=== PATIENT | female | born 1960 | race Hispanic/Latino ===

== ENCOUNTER → 2025-03-10 | Outpatient (CLI) | payer OTHER, MEDICARE ==
[~2025-03-10] MED LIST: CHLO25TA3 PO; ERGO500093 PO; LEVO750T68 PO; LISI20TA24 PO; METH-811 PO; METR-172 PO; ROSU20TA98 PO; TRAM50TA4 PO
--- NOTE | 2025-03-15 15:05 | HMCIMG ---
DIGITAL BILATERAL SCREENING MAMMOGRAM Technique: The digital mammographic examination of both breasts in craniocaudal and mediolateral oblique views along with CAD was obtained. History: This is a 65 years year-old female 3, para3 Ab0. Patient has no family history of breast cancer. Patient has no complaint Reference:Prior mammogram from 12/08/2012 is available.. Breast composition: Breast composition B: There are scattered areas of fibroglandular density. Finding: The digital mammographic examination of both breasts in craniocaudal and mediolateral oblique view along with CAD demonstrates both breasts to BE mildly to moderately heterogeneously dense. There are scattered benign solitary macrocalcification in both breasts.. There is no evidence of any dendritic mass, cluster microcalcification or architectural distortion. The retromammary fat appears to be normal. IMPRESSION: Unchanged from prior mammography. NO RADIOGRAPHIC EVIDENCE OF MALIGNANT CHANGES. WE WOULD RECOMMEND ANNUAL FOLLOW UP WITH TOMOSYNTHESIS UNLESS OTHERWISE CLINICALLY INDICATED. FINAL ASSESSMENT: ACR: BI-RAD- 2. Benign: Also a negative assessment; finding(s) benign abnormalities. Management: Routine mammography screening. Likelihood of Cancer: Essentially 0% likelihood of malignancy. NOTE: IF A WORK-UP OF THIS PATIENT LEADS TO A BIOPSY, PLEASE FORWARD A COPY OF THE PATHOLOGY REPORT TO OUR OFFICE REQUIRED BY SA EFFECTIVE MAY 18, 1994. A NEGATIVE MAMMOGRAM SHOULD NOT PRECLUDE BIOPSY OF A CLINICALLY PALPABLE SUSPICIOUS MASS, 10% OF BREAST CANCERS ARE MAMMOGRAPHICALLY OCCULT. THIS MAMMOGRAPHY FACILITY IS FULLY ACCREDITED BY THE FOOD AND DRUG [employer]MINISTRATION (FDA). THANK YOU FOR THIS REFERRAL.
== END | disposition home or self-care (01) ==
LOC: RAH 12:36
PROVIDERS: ATTEND Family Medicine
DX: Z12.31 Encounter for screening mammogram for malignant neoplasm of breast (principal); R92.323 Mammographic fibroglandular density, bilateral breasts; Z78.0 Asymptomatic menopausal state
CPT/HCPCS: 77067; 77080

== ENCOUNTER 2025-05-08 13:28 | Emergency (ER) | payer OTHER, MEDICARE ==
[~2025-05-08] VITALS: Ht 154.9 cm; Wt 63.5 kg
--- NOTE | 2025-05-08 13:35 | ERN ---
ED Note History of Present Illness Stated Complaint: UPPER BACK PAIN Chief Complaint: Back Pain-No Injury Time Seen by MD: 13:29 Dictation: PATIENT IS HERE WITH TWO COMPLAINTS 1ST COMPLAINT IS SHE IS HAVING MIDTHORACIC PAIN THAT IS STARTED LAST NIGHT WHILE SHE WAS AT REST. SHE STATES SHE WAS JUST SITTING WATCHING TV WHEN SHE WILL FELT THE PAIN. NO CHEST PAIN NO SOB. SHE ALSO STATES SHE IS HAVING ABDOMINAL CRAMPING THAT SHE HAS HAD FOR SEVERAL DAYS AND WAS TRE[facility] IN THE [facility]ST BY [facility] [place] BECAUSE OF THE ABDOMINAL CRAMPING. SHE WOULD LIKE BOTH OF THESE WORKED UP. SHE IS AFRAID SHE MIGHT BE HAVING AN DC. Allergies: Coded Allergies: piperacillin (Unverified Allergy, Intermediate, HIVES, 02/04/25) tazobactam (Unverified Allergy, Intermediate, HIVES, 02/04/25) Home Meds Active Scripts Metronidazole (Metronidazole) 500 Mg Tablet, 1 TAB PO BID for 5 Days, #14 TAB 0 Refills Prov:MICHELLE SAUER CIVIL TECHNICIAN 02/09/25 Levofloxacin (Levaquin 750Mg Tabs) 750 Mg Tablet, 1 TAB PO DAILY for 5 Days, #5 TAB 0 Refills Prov:MICHELLE SAUER CIVIL TECHNICIAN 02/09/25 Reported Medications Ergocalciferol (Vitamin D2) (Vitamin D2) 1,250 Mcg (30400 Unit) Capsule, 1 CAP PO QWEEK 02/04/25 Lisinopril (Lisinopril) 20 Mg Tablet, 1 TAB PO DAILY 02/04/25 Chlorthalidone (Chlorthalidone) 25 Mg Tablet, 1 TAB PO DAILY 02/04/25 Methocarbamol (Methocarbamol) 500 Mg Tablet, 2 TAB PO QID 02/04/25 Rosuvastatin Calcium (Rosuvastatin Calcium) 20 Mg Tablet, 1 TAB PO HS 02/04/25 Tramadol Hcl (Tramadol HCl) 50 Mg Tablet, 1 TAB PO BID 02/04/25 Past Medical History Past Medical History: High Cholesterol, Hypertension Surgical History: Hysterectomy History: Not Applicable RN Note Reviewed/Agreed w/PFSH: Yes Review of System Dictation CONSTITUTIONAL: NEGATIVE EXCEPT FOR HPI HEAD/FACE: NEGATIVE EXCEPT FOR HPI EENT: NEGATIVE EXCEPT FOR HPI RESPIRATORY: NEGATIVE EXCEPT FOR HPI GASTROINTESTINAL/ABDOMINAL: NEGATIVE EXCEPT FOR HPI ABDOMINAL CRAMPING GENITOURINARY: NEGATIVE EXCEPT FOR HPI MUSCULOSKELETAL: NEGATIVE EXCEPT FOR HPI MIDTHORACIC BACK PAIN INTEGUMENTARY: NEGATIVE EXCEPT FOR HPI NEUROLOGICAL/PSYCH: NEGATIVE EXCEPT FOR HPI HEMATOLOGIC/LYMPHATIC: NEGATIVE EXCEPT FOR HPI ALL SYSTEMS NEGATIVE, EXCEPT NOTED ABOVE. 13 POINT REVIEW OF SYSTEMS ASSESSED AND ALL NEGATIVE EXCEPT FOR ABOVE. Initial Vital Sign VS Vital Signs Date Time Temp Pulse Resp B/P (MAP) Pulse Ox O2 Delivery O2 Flow Rate FiO2 05/08/25 13:29 98.8 69 20 149/85 96 05/08/25 13:38 Room Air* 0 21 Physical Exam Dictation VITAL SIGNS REVIEWED GENERAL APPEARANCE: ALERT, ORIENTED X 3, MODERATE ACUTE DISTRESS, WELL DEVELOP ED, NOURISHED. HEAD AND FACE: NON-TRAUMATIC. EYES: PERRL, PINK CONJUNCTIVAS, EYELID NO TRAUMA, ANTERIOR CHAMBER WITH ARCUS SENILIS. EARS: PINNAS INTACT AND NO SIGNS OF TRAUMA OR ERYTHEMA EAR CANALS CLEAR AND NO DISCHARGE TM NO ERYTHEMA NOSE: NO DISCHARGE, NO BLEEDING. OROPHARYNX: MOUTH NORMAL, TONGUE PINK, PHARYNX CLEAR,NO ERYTHEMA, TONSILS NO EXUDATES, NO ABSCESSES NOTED, MUCOUS MEMBRANE MOIST NECK: SUPPLE, NON-TENDER, NO THYROMEGALY, NO MASSES, NO JVD, NO BRUITS BREAST:DEFERRED CHEST:NO TENDERNESS, NO CREPITUS, NO PARADOXICAL MOVEMENT, NO RETRACTIONS LUNGS:CLEAR, WELL-VENTILATED, SYMMETRIC, NO RALES, NO WHEEZING, NO RHONCHI, NO STRIDOR, GOOD BREATH SOUNDS BILATERALLY HEART: REGULAR RATE, REGULAR RHYTHM, NO MURMUR, NO GALLOPS VASCULAR: NO PERIPHERAL EDEMA, ABDOMEN: SOFT, POSITIVE BOWEL SOUNDS, NONDISTENDED, NO GUARDING, NONTENDER, NO REBOUND, NO MASSES NO HEPATOMEGALY, NO SPLENOMEGALY, NO SCHERER'S SIGN, NO HERNIAS. RECTAL: DEFERRED GENITAL: DEFERRED NEUROLOGICAL: NORMAL SPEECH, MOTOR FUNCTION INTACT, SENSORY FUNCTION INTACT MUSCULOSKELETAL: NECK NONTENDER, FULL RANGE OF MOTION, MIDTHORACIC TENDERNESS, REPRODUCES PAIN WITH PALPATION FULL RANGE OF MOTION, EXTREMITIES: NONTENDER, FULL RANGE OF MOTION SKIN: COLOR PINK, DRY, NO TURGOR, NO RASH, NO LACERATIONS, NO ABRASIONS, NO CONTUSIONS. LYMPHATIC: DEFERRED Results (Laboratory/Radiology) Laboratory/Radiology Laboratory Tests Test 05/08/25 13:36 White Blood Count 11.5 K/uL (4.8-10.8) H Red Blood Count 4.30 MIL/uL (4.00-5.50) Hemoglobin 14.2 g/dL (12.0-16.0) Hematocrit 41.1 % (36-48) Mean Corpuscular Volume 95.6 fL (79-99) Mean Corpuscular Hemoglobin 33.0 pg (27.0-33.0) Mean Corpuscular Hemoglobin Concent 34.5 g/dL (32.0-36.0) Red Cell Distribution Width 13.3 % (11.0-15.5) Platelet Count 381 K/uL (130-400) Mean Platelet Volume 8.8 fL (7.5-10.5) Immature Granulocyte % (Auto) 0.3 % (0-1) Neutrophils (%) (Auto) 57.9 % (40.0-77.0) Lymphocytes (%) (Auto) 32.3 % (21.0-51.0) Monocytes (%) (Auto) 6.2 % (3.0-13.0) Eosinophils (%) (Auto) 2.9 % (0.0-8.0) Basophils (%) (Auto) 0.4 % (0.0-5.0) Neutrophils # (Auto) 6.7 K/uL (1.8-7.7) Lymphocytes # (Auto) 3.7 K/uL (1.0-4.8) Monocytes # (Auto) 0.7 K/uL (0.1-1.0) Eosinophils # (Auto) 0.34 K/uL (0.00-0.70) Basophils # (Auto) 0.05 K/uL (0.00-0.20) Absolute Immature Granulocyte (auto 0.03 K/uL (0-1) Nucleated Red Blood Cells 0.0 % (0.0-0.19) Sodium Level 138 mmol/L (136-145) Potassium Level 3.9 mmol/L (3.5-5.1) Chloride Level 101 mmol/L (101-111) Carbon Dioxide Level 25 mmol/L (21-32) Blood Urea Nitrogen 21 mg/dL (7-18) H Creatinine 1.2 mg/dL (0.5-1.0) H Glomerular Filtration Rate Calc 50 mL/min (>90) Random Glucose 95 mg/dL (70-105) Total Calcium 9.8 mg/dL (8.5-10.1) Magnesium Level 1.70 mg/dL (1.80-2.40) L Troponin I High Sensitivity 14 ng/L (4-50) Mid abdominal pain with nausea. COMPARISON None. TECHNIQUE Volumetric helical CT images of the abdomen and pelvis without contrast FINDINGS Liver: Normal. Gallbladder: No calcified gallstones or sludge. No wall thickening. Biliary System: Non-dilated. Pancreas: Normal. Spleen: Normal. Adrenals: Normal. Kidneys: Normal bilaterally. Ureters: Normal. Bladder: Normal. Pelvis: Prior hysterectomy. No pelvic masses or abnormal fluid. Stomach: Normal. Duodenum: Normal. Small Bowel: Normal. Colon: Normal. Appendix: Nonvisualized, without evidence for appendicitis. Lymph Nodes: No lymphadenopathy. Peritoneum: No ascites or free air. Retroperitoneum: Normal. Vessels: Normal. Abdominal Wall: Normal. Bones: Degenerative changes of visualized spine. No acute osseous findings. Lung Bases: Mild centrilobular emphysema. Atelectasis in the left lower lobe. Inferior Mediastinum: Normal. IMPRESSION No acute intra-abdominal findings. Mild centrilobular emphysema. /[facility] Labs Reviewed?: Yes EKG Comment: EKG SINUS RHYTHM/HEART RATE 89/AXIS NORMAL/LEFT ATRIAL ENLARGEMENT ED Course ED Course Orders Procedure Category Date Status Time Cbc With Differential LAB 05/08/25 Complete 13:32 Chest 1vw RAD 05/08/25 Resulted 13:32 12 Lead Ekg Tracing- EKG 05/08/25 Complete Technical 13:32 Magnesium LAB 05/08/25 Complete 13:32 Troponin I High LAB 05/08/25 Complete Sensitivity 13:32 Basic Metabolic Panel LAB 05/08/25 Complete 13:32 Morphine 2mg Syg PHA 05/08/25 Complete (Morphine 2mg Syg) 14:00 Dicyclomine Hcl PHA 05/08/25 Complete (Bentyl 20mg Tab) 14:00 Pharmacy PHA 05/08/25 Complete Communication 14:30 Magnesium 2gm Premix PHA 05/08/25 In Process 50ml (Magnesium 2gm 14:30 Ct Abdomen/Pelvis W/O CT 05/08/25 Resulted Contrast 15:02 Current Medications Medications (Trade) Dose Ordered Sig/Krishan Route PRN Reason Start Time Stop Time Status Last Admin Dose Admin Dicyclomine HCl (Bentyl 20mg Tab) 20 mg ONCE ONCE PO 05/08/25 14:00 05/08/25 14:03 DC 05/08/25 14:12 Magnesium Sulfate 50 ml @ 0 mls/hr PROTOCOL IV 05/08/25 14:30 06/07/25 14:29 05/08/25 14:25 Morphine Sulfate (morPHINE 2MG SYG) 2 mg ONCE ONCE IVP 05/08/25 14:00 05/08/25 14:07 DC 05/08/25 14:12 Pharmacy Profile Note (Pharmacy Communication) 1 each ONCE MISC 05/08/25 14:30 05/08/25 14:09 DC Vital Signs Date Time Temp Pulse Resp B/P (MAP) Pulse Ox O2 Delivery O2 Flow Rate FiO2 05/08/25 14:50 98.4 78 18 114/62 96 Room Air* 0 05/08/25 13:38 98.4 98 24 157/86 98 Room Air* 0 05/08/25 13:29 98.8 69 20 149/85 96 1650/PATIENT STATES PAIN IS MARKEDLY REDUCED IN HIS NOT WISH TO STAY IN THE HOSPITAL. SHE WILL BE DISCHARGED HOME WITH ULTRACET AND TOLD TO FOLLOW UP WITH HER DOCTOR TOMORROW. ALL QUESTIONS ANSWERED. Medical Decision Making MDM MDM: DIFFERENTIAL DIAGNOSIS: ACS/AMI/ELECTROLYTE IMBALANCE/DEHYDRATION/DIVERTICULITIS/PNEUMONIA/BRONCHITIS/ELECTROLYTE IMBALANCE RATIONALE: TESTS CONSIDERED AND ORDERED SECONDARY TO SHARED DECISION MAKING INCLUDE: RADIOLOGY/LABS/EKG PREVIOUS OUTSIDE RECORDS REVIEWED: OLD ER VISITS. RISK OF COMPLICATION AND/OR MORBIDITY OR MORTALITY OF PATIENT MANAGEMENT: NONE MEDICATIONS-PER MEDICATION RECONCILIATION NEED FOR HOSPITALIZATION: PATIENT DOES NOT MEET CRITERIA FOR HOSPITALIZATION. REFUSES ADMISSION AT THIS TIME WISHES TO GO HOME ON PAIN MANAGEMENT WE WILL SEE HER DOCTOR TOMORROW. NEED FOR EMERGENCY MAJOR/MINOR SURGERY: NO THERE ARE NO SOCIAL CONCERNS WITH THIS PATIENT. TOBACCO ABUSER PRESCRIPTION DRUG MANAGEMENT ULTRACET PRESCRIPTIONS WILL INCLUDE SYMPTOMATIC CARE PATIENT'S PRIOR EXTERNAL MEDICAL RECORDS FROM OTHER ER VISITS WERE REVIEWED BY ME INDICATED. PRIOR TESTING AND RESULTS FROM PREVIOUS VISITS WERE REVIEWED. PRIOR TESTS WERE TAKEN INTO ACCOUNT WITH MEDICAL DECISION MAKING AND RESOURCE UTILIZATION, INDEPENDENT HISTORIAN/HISTORIANS WERE USED TO OBTAIN COMPLETE MEDICAL HISTORY. I INDEPENDENTLY INTERPRETED THE TEST THAT WERE PERFORMED, RESULTS WERE REVIEWED BY ME AND CONSIDERED FINDINGS ON RADIOLOGY IF ORDERED. MEDICAL MANAGEMENT AND EXAMINATION INTERPRETATION DISCUSSIONS WERE HAD BY ME WITH OTHER QUALIFIED HEALTHCARE PROFESSIONALS INDICATED FOR THE PATIENT'S CARE. DX & DISP Disposition: Discharge Departure Impression: Primary Impression: Abdominal cramping Additional Impressions: Hypomagnesemia, Stage 3 chronic kidney disease, E mphysema, interstitial, Tobacco abuse Condition: Stable Scripts Tramadol HCl/Acetaminophen (Tramadol-Acetaminophn 37.5-325) 37.5 Mg-325 Mg Tablet 2 TAB PO Q6HPRN PRN for PAIN LEVEL 6 TO 10, #15 TAB 0 Refills Prov: LUCIANO LANCASTER CIVIL TECHNICIAN 05/08/25 Additional Instructions: Follow-up with primary care provider in 1 to 2 days. Take medications as directed here in the emergency room. Okay to continue home medications unless otherwise discussed during your visit in the emergency room today. Return to your nearest emergency room if symptoms worsen or if there is no improvement. Call 911 if you need immediate assistance. Take Tylenol or Motrin [id number] as needed and if no contraindications are present. Increase oral hydration. A wound culture or urine culture was ordered here in the emergency room department please follow-up with primary care provider and advise them to get repeat ports from our facility. If you had any Jason wrap/splints th at were applied here, please do not remove them until you see your primary care or specialty. Take Ultracet as needed for moderate to severe pain. Follow up with your primary care doctor in the next one two days for management of your back pain and abdominal pain Referrals: AMANDA COON MD (PCP) I have reviewed the case, and I agree with, Diagnosis and Plan LUCIANO LANCASTER NP May 08, 2025 13:35
--- NOTE | 2025-05-08 13:40 | EKG ---
[facility] Test Date: 2025-05-08 Test Time: 13:35:00 Pat Name: JACIEL SAUER Department: ED Room: Gender: F Hand Candy Cutter: [id number] : [id number] Requested By: LUCIANO LANCASTER Order Number: [id number] Reading MD: Woody Hood Measurements Intervals [place] Rate: 89 P: 37 [place]: 160 QRS: 38 QRSD: 66 T: 44 QT: 333 QTc: 406 Interpretive Statements Sinus rhythm Probable left atrial enlargement Compared to ECG 02/04/2025 15:01:39 No significant changes Electronically Signed On 05-08-2025 21:59:02 CDT by Woody Hood Please click the below link to view image of tracing.
[2025-05-08 13:47] LABS: IMMATURE GRANULOCYTE ABSOLUTE 0.03 K/uL (0-1); NUCLEATED RED BLOOD CELLS 0.0 % (0.0-0.19); PLATELET COUNT (AUTO) 381 K/uL (130-400); RED BLOOD CELL COUNT(AUTO) 4.30 MIL/uL (4.00-5.50); RED CELL DISTRIBUTION WIDTH 13.3 % (11.0-15.5); WHITE BLOOD COUNT (AUTO) 11.5 K/uL (4.8-10.8)
[2025-05-08 13:56] LABS: CREATININE 1.2 mg/dL (0.5-1.0); GLOMERULAR FILTR. RATE CALC 50.0 mL/min (>90); GLUCOSE,RANDOM 95.0 mg/dL (70-105); SODIUM SERUM 138.0 mmol/L (136-145); UREA NITROGEN, BLOOD 21.0 mg/dL (7-18)
[2025-05-08] MEDS: DICYCLOMINE HCL 20 MG TAB PO ONE (14:12)
--- NOTE | 2025-05-08 14:20 | HMCIMG ---
CLINICAL INFORMATION Chest pain COMPARISON None. TECHNIQUE Frontal view chest. FINDINGS Lines and tubes: None Lungs: Clear. Pleura: Unremarkable. No effusion or pneumothorax. Cardiomediastinal Silhouette: Unremarkable. Bones: Normal for age. Soft Tissues: Normal. IMPRESSION No acute cardiopulmonary findings. /[place]
[2025-05-08] MEDS: MAGNESIUM 2GM PREMIX 50ML 50 ML IV SCH (14:25)
[2025-05-08] MEDS ORDERED: PHARMACY COMMUNICATION MISC SCH (14:30)
--- NOTE | 2025-05-08 15:35 | NUR ---
PATIENT TRANSPORTED TO CT BY CONSTRUCTION TECHNICIAN.
--- NOTE | 2025-05-08 15:57 | NUR ---
Brenda greenwood in [facility] - 05/08/25 at 1559 by [email or web address] PATIENT TRANSPORTED TO CT BY DRY GOODS INSPECTOR.
--- NOTE | 2025-05-08 15:59 | NUR ---
PATIENT RETURNED FROM CT.
--- NOTE | 2025-05-08 16:30 | HMCIMG ---
CLINICAL INFORMATION Mid abdominal pain with nausea. COMPARISON None. TECHNIQUE Volumetric helical CT images of the abdomen and pelvis without contrast FINDINGS Liver: Normal. Gallbladder: No calcified gallstones or sludge. No wall thickening. Biliary System: Non-dilated. Pancreas: Normal. Spleen: Normal. Adrenals: Normal. Kidneys: Normal bilaterally. Ureters: Normal. Bladder: Normal. Pelvis: Prior hysterectomy. No pelvic masses or abnormal fluid. Stomach: Normal. Duodenum: Normal. Small Bowel: Normal. Colon: Normal. Appendix: Nonvisualized, without evidence for appendicitis. Lymph Nodes: No lymphadenopathy. Peritoneum: No ascites or free air. Retroperitoneum: Normal. Vessels: Normal. Abdominal Wall: Normal. Bones: Degenerative changes of visualized spine. No acute osseous findings. Lung Bases: Mild centrilobular emphysema. Atelectasis in the left lower lobe. Inferior Mediastinum: Normal. IMPRESSION No acute intra-abdominal findings. Mild centrilobular emphysema. /[place]
[2025-05-08 16:56] VITALS: BP 137/64; PULSE 58; RESP 18; TEMP 98.4; O2SAT 98
[2025-05-08] MEDS ORDERED: TRAM-543 PO (17:06)
== END 2025-05-08 17:53 | disposition home or self-care (01) ==
LOC: EDH 13:28
DX: R10.9 Unspecified abdominal pain (principal); E83.42 Hypomagnesemia; I12.9 Hypertensive chronic kidney disease with stage 1 through stage 4 chronic kidney disease, or unspecified chronic kidney disease; N18.30 Chronic kidney disease, stage 3 unspecified; J98.2 Interstitial emphysema; E78.00 Pure hypercholesterolemia, unspecified; Z72.0 Tobacco use; Z79.899 Other long term (current) drug therapy; Z88.0 Allergy status to penicillin; Z90.710 Acquired absence of both cervix and uterus
CPT/HCPCS: 99285; 74176; 96365; 71045; 96366; 96375; 83735; 84484; 80048; 85025; 36415; 93005; J3475; J2270

== ENCOUNTER 2025-05-18 09:22 | Emergency (ER) | payer OTHER, MEDICARE ==
[~2025-05-18] VITALS: Ht 154.9 cm; Wt 60.8 kg
[~2025-05-18 09:22] MED LIST changes: +TRAM-543 PO
[2025-05-18] MEDS: 0.9%NACL 1000ML 1,000 ML IV ONE (10:09)
[2025-05-18 10:14] LABS: IMMATURE GRANULOCYTE ABSOLUTE 0.03 K/uL (0-1); NUCLEATED RED BLOOD CELLS 0.0 % (0.0-0.19); PLATELET COUNT (AUTO) 317 K/uL (130-400); RED BLOOD CELL COUNT(AUTO) 4.17 MIL/uL (4.00-5.50); RED CELL DISTRIBUTION WIDTH 13.3 % (11.0-15.5); WHITE BLOOD COUNT (AUTO) 11.0 K/uL (4.8-10.8)
[2025-05-18 10:17] LABS: APPEARANCE,URINE CLOUDY (CLEAR); GLUCOSE, URINE (UA) NEGATIVE (NEGATIVE); LEUKOCYTE ESTERASE ,URINE NEGATIVE Leu/uL (NEGATIVE); NITRATE,URINE NEGATIVE (NEGATIVE); OCCULT BLOOD,URINE NEGATIVE (NEGATIVE)
[2025-05-18 10:22] LABS: CREATININE 1.2 mg/dL (0.5-1.0); GLOMERULAR FILTR. RATE CALC 50.0 mL/min (>90); GLUCOSE,RANDOM 126.0 mg/dL (70-105); SODIUM SERUM 140.0 mmol/L (136-145); UREA NITROGEN, BLOOD 25.0 mg/dL (7-18)
[2025-05-18 10:23] LABS: ADD UA MICROSCOPIC YES
[2025-05-18 10:28] LABS: ASPARTATE AMINOTRANSFERASE 15.0 U/L (10-37); TOTAL PROTEIN, SERUM 7.7 g/dL (6.0-8.3)
[2025-05-18 10:36] LABS: SQUAMOUS EPITHELIAL CELL,UR MOD /HPF (0-2)
--- NOTE | 2025-05-18 10:45 | HMCIMG ---
EXAM: CT Abdomen and Pelvis Without IV contrast CLINICAL HISTORY: left sided pain TECHNIQUE: Axial computed tomography images of the abdomen and pelvis without intravenous contrast. CONTRAST: No IV contrast. COMPARISON: 05/08/2025. FINDINGS: LUNG BASES: The lung bases appear clear. No pleural effusions are seen. LIVER: Unremarkable. GALLBLADDER AND BILE DUCTS: The gallbladder appears within normal limits. No radioopaque gallstones are seen. No biliary ductal dilatation is evident. PANCREAS: Unremarkable. SPLEEN: Unremarkable. ADRENAL GLANDS: Unremarkable. KIDNEYS, URETERS, AND BLADDER: The kidneys appear within normal limits. There is no hydronephrosis or hydroureter. No urinary calculi are seen. STOMACH AND BOWEL: Unremarkable appearance of the stomach and bowel. No evidence of bowel obstruction. No evidence suggesting enteritis or colitis. APPENDIX: Appendix not visualized, however there are no inflammatory changes within the right lower quadrant. PERITONEUM: No free fluid. No free air. LYMPH NODES: No lymphadenopathy is evident. REPRODUCTIVE: Prior hysterectomy. VASCULATURE: No evidence of abdominal aortic aneurysm. BONES: No aggressive appearing osseous lesion. No acute osseous pathology evident. MISCELLANEOUS: Severe loss of disc height at L2/L3. IMPRESSION: 1. No acute intraabdominal or pelvic pathology. 2. Severe loss of disc height at L2/L3. /[place]
[2025-05-18] MEDS ORDERED: DICY20TA2 PO (11:56)
--- NOTE | 2025-05-18 11:56 | ERN ---
ED Note History of Present Illness Stated Complaint: LT ABD PAIN Chief Complaint: Abdominal Pain Time Seen by MD: 09:54 Dictation: 65-year-old female with left-sided abdominal pain over the past five days worse today patient reported severe 10/10 pain associated with nausea no vomiting. Allergies: Coded Allergies: piperacillin (Unverified Allergy, Intermediate, HIVES, 02/04/25) tazobactam (Unverified Allergy, Intermediate, HIVES, 02/04/25) Home Meds Active Scripts Tramadol HCl/Acetaminophen (Tramadol-Acetaminophn 37.5-325) 37.5 Mg-325 Mg Tablet, 2 TAB PO Q6HPRN PRN for PAIN LEVEL 6 TO 10, #15 TAB 0 Refills Prov:LUCIANO LANCASTER [employer] 05/08/25 Metronidazole (Metronidazole) 500 Mg Tablet, 1 TAB PO BID for 5 Days, #14 TAB 0 Refills Prov:MICHELLE SAUER [employer] 02/09/25 Levofloxacin (Levaquin 750Mg Tabs) 750 Mg Tablet, 1 TAB PO DAILY for 5 Days, #5 TAB 0 Refills Prov:MICHELLE SAUER [employer] 02/09/25 Reported Medications Ergocalciferol (Vitamin D2) (Vitamin D2) 1,250 Mcg (18820 Unit) Capsule, 1 CAP PO QWEEK 02/04/25 Lisinopril (Lisinopril) 20 Mg Tablet, 1 TAB PO DAILY 02/04/25 Chlorthalidone (Chlorthalidone) 25 Mg Tablet, 1 TAB PO DAILY 02/04/25 Methocarbamol (Methocarbamol) 500 Mg Tablet, 2 TAB PO QID 02/04/25 Rosuvastatin Calcium (Rosuvastatin Calcium) 20 Mg Tablet, 1 TAB PO HS 02/04/25 Tramadol Hcl (Tramadol HCl) 50 Mg Tablet, 1 TAB PO BID 02/04/25 Past Medical History Past Medical History: Diabetes-Type II, High Cholesterol, Hypertension Surgical History: Appendectomy, Hysterectomy Surgical History Other: CERVICAL SPINE SX History: Not Applicable Review of System Dictation Constitutional: Negative for fever,chills, and weight loss Eyes: Negative for injury, pain,redness, and discharge ENT: Negative for injury,pain or swelling Cardiovascular: Negative for chest pain, palpitations, and edema Respiratory: Negative for shortness of breath, cough, and wheezing, Abdomen/GI: Per HPI : Negative for injury, bleeding and discharge MS/Extremity: Negative for injury and deformity Skin: Negative for rash, and discoloration Neuro: Negative for headache, weakness, numbness, tingling, and seizure Psych: Negative for suicide ideation, homicidal ideation, and hallucinations Initial Vital Sign VS Vital Signs Date Time Temp Pulse Resp B/P (MAP) Pulse Ox O2 Delivery O2 Flow Rate FiO2 05/18/25 09:26 98.2 80 18 114/81 100 Room Air 0 Physical Exam Dictation General: awake, alert, appears uncomfortable Head/Face: Normocephalic, atraumatic Eyes: PERRL, EOMI, vision at baseline ENT: oral cavity clear, TMs clear, no signs of infection Neck: Trachea midline, supple, no nuchal rigidity Cardiovascular: RRR, normal S1/S2, No MRGs, no JVD Respiratory: CTAB, no respiratory distress, No rales or wheezes Abdomen: Soft, diffuse tenderness to palpation, non-distended, normal bowel sounds, no guarding or rebound. Skin: Warm, dry, normal turgor, no rash MS/Extremity: Pulses equal, no cyanosis, neurovascular intact, FROM Neuro: COAx4, GCS 15, strength 5/5, CN 2-12 intact, normal cerebellar exam, normal gait, Psych: Normal behavior, mood, and affect normal Results (Laboratory/Radiology) Laboratory/Radiology Laboratory Tests Test 05/18/25 09:30 05/18/25 10:09 Urine Color YELLOW (YELLOW) Urine Appearance CLOUDY (CLEAR) H Urine pH 5.5 (5.0-8.0) Urine Specific [place] 1.020 (1.001-1.031) Urine Protein NEGATIVE mg/dL (NEGATIVE) Urine Glucose (UA) NEGATIVE mg/dL (NEGATIVE) Urine Ketones NEGATIVE mg/dL (NEGATIVE) Urine Occult Blood NEGATIVE (NEGATIVE) Urine Nitrate NEGATIVE (NEGATIVE) Urine Bilirubin NEGATIVE mg/dL (NEGATIVE) Urine Urobilinogen 0.2 mg/dL (0.2-1.0) Urine Leukocyte Esterase NEGATIVE Jennifer/uL Urine RBC 2-5 /HPF (0-1) H Urine WBC 2-5 /HPF (0-1) H Urine Squamous Epithelial Cells MOD /HPF (0-2) Urine Bacteria MANY /HPF (None Seen) Urine Hyaline Casts 2-5 /LPF (0-1 /LPF) H White Blood Count 11.0 K/uL (4.8-10.8) H Red Blood Count 4.17 MIL/uL (4.00-5.50) Hemoglobin 13.6 g/dL (12.0-16.0) Hematocrit 40.9 % (36-48) Mean Corpuscular Volume 98.1 fL (79-99) Mean Corpuscular Hemoglobin 32.6 pg (27.0-33.0) Mean Corpuscular Hemoglobin Concent 33.3 g/dL (32.0-36.0) Red Cell Distribution Width 13.3 % (11.0-15.5) Platelet Count 317 K/uL (130-400) Mean Platelet Volume 8.6 fL (7.5-10.5) Immature Granulocyte % (Auto) 0.3 % (0-1) Neutrophils (%) (Auto) 65.4 % (40.0-77.0) Lymphocytes (%) (Auto) 26.3 % (21.0-51.0) Monocytes (%) (Auto) 5.7 % (3.0-13.0) Eosinophils (%) (Auto) 2.0 % (0.0-8.0) Basophils (%) (Auto) 0.3 % (0.0-5.0) Neutrophils # (Auto) 7.2 K/uL (1.8-7.7) Lymphocytes # (Auto) 2.9 K/uL (1.0-4.8) Monocytes # (Auto) 0.6 K/uL (0.1-1.0) Eosinophils # (Auto) 0.22 K/uL (0.00-0.70) Basophils # (Auto) 0.03 K/uL (0.00-0.20) Absolute Immature Granulocyte (auto 0.03 K/uL (0-1) Nucleated Red Blood Cells 0.0 % (0.0-0.19) Sodium Level 140 mmol/L (136-145) Potassium Level 4.6 mmol/L (3.5-5.1) Chloride Level 104 mmol/L (101-111) Carbon Dioxide Level 22 mmol/L (21-32) Blood Urea Nitrogen 25 mg/dL (7-18) H Creatinine 1.2 mg/dL (0.5-1.0) H Glomerular Filtration Rate Calc 50 mL/min (>90) Random Glucose 126 mg/dL (70-105) H Total Calcium 9.8 mg/dL (8.5-10.1) Total Bilirubin 0.4 mg/dL (0.2-1.0) Direct Bilirubin 0.1 mg/dL (0.0-0.3) Aspartate Amino Transf (AST/SGOT) 15 U/L (10-37) Alanine Aminotransferase (ALT/SGPT) 24 U/L (12-78) Alkaline Phosphatase 84 U/L (50-136) Troponin I High Sensitivity 12 ng/L (4-50) Total Protein 7.7 g/dL (6.0-8.3) Albumin 4.2 g/dL (3.5-5.0) Lipase 36 U/L (16-77) Labs Reviewed?: Yes ED Course ED Course Orders Procedure Category Date Status Time Saline Lock Iv CPOE 05/18/25 Transmitted 09:48 Cbc With Differential LAB 05/18/25 Complete 09:48 Lipase LAB 05/18/25 Complete 09:48 Urinalysis Profile LAB 05/18/25 Complete 09:48 Basic Metabolic Panel LAB 05/18/25 Complete 09:48 12 Lead Ekg Tracing- EKG 05/18/25 Logged Technical 09:54 Troponin I High LAB 05/18/25 Complete Sensitivity 09:54 Ct Abd/Pel Wo Con CT 05/18/25 Resulted Renal/Appy 09:54 Ondansetron 4mg Inj PHA 05/18/25 Complete (Zofran 4mg Inj) 10:00 Hydromorphone 1 Mg PHA 05/18/25 Complete Inj (Dilaudid 1mg Inj 10:00 0.9%Nacl 1000ml (Ns PHA 05/18/25 Complete 1000ml) 10:00 Hepatic Function Panel LAB 05/18/25 Complete 10:09 Culture Urine CARLOS 05/18/25 In Process 10:47 Current Medications Medications (Trade) Dose Ordered Sig/Krishan Route PRN Reason Start Time Stop Time Status Last Admin Dose Admin Hydromorphone HCl (DiLAUDid 1MG INJ) 1 mg ONCE ONCE IVP 05/18/25 10:00 05/18/25 10:01 DC 05/18/25 10:10 Ondansetron HCl (zoFRAN 4MG INJ) 4 mg ONCE ONCE IVP 05/18/25 10:00 101/25 10:01 DC 05/18/25 10:09 Sodium Chloride 1,000 ml @ 0 mls/hr ONCE ONCE IV 05/18/25 10:00 05/18/25 10:01 DC 05/18/25 10:09 Vital Signs Date Time Temp Pulse Resp B/P (MAP) Pulse Ox O2 Delivery O2 Flow Rate FiO2 05/18/25 09:26 98.2 80 18 114/81 100 Room Air 0 Medical Decision Making MDM MDM: Differential diagnosis: Rationale: Tests considered and ordered secondary to shared decision making include: Previous outside records reviewed: Old ER visits. Risk of complication and/or morbidity or mortality of patient management: None Medications-Per medication reconciliation Need for hospitalization: Patient does not meet criteria for hospitalization. Need for emergency major/minor surgery: No There are no social concerns with this patient. Prescription drug management Prescriptions will include symptomatic care Patient's prior external medical records from other ER visits were reviewed by me as indicated. Prior testing and results from previous visits were reviewed. Prior tests were taken into account with medical decision making and resource utilization, independent historian/historians were used to obtain complete medical history. I independently interpreted the test that were performed, results were reviewed by me and considered findings on radiology if ordered. Medical management and examination interpretation discussions were had by me with other qualified healthcare professionals as indicated for the patient's care. 65-year-old female with the abdominal pain stable exam negative workup CT scan negative symptoms improved stable for discharge DX & DISP Disposition: Discharge Departure Impression: Primary Impression: Acute abdominal pain Condition: Stable Scripts Dicyclomine HCl (Bentyl) 20 Mg Tab 1 TAB PO BID for irritable bowel symptoms for 10 Days, #20 TAB 0 Refills Prov: RAYO COTO MD 05/18/25 Referrals: AMANDA COON MD (PCP) RAYO COTO MD May 18, 2025 11:56
--- NOTE | 2025-05-18 12:24 | EKG ---
[facility] Test Date: 2025-05-18 Test Time: 10:09:19 Pat Name: JACIEL SAUER Department: ED Room: Gender: F Formula Mixer: [facility]8//student : 1960 Requested By: RAYO COTO Order Number: [id number] Reading MD: Woody Hood Measurements Intervals [place] Rate: 65 P: 53 TX: 139 QRS: 56 QRSD: 74 T: 71 QT: 386 QTc: 401 Interpretive Statements Sinus rhythm Nonspecific STT abnormality Compared to ECG 05/08/2025 13:35:00 No significant changes Electronically Signed On 05-18-2025 21:34:00 CDT by Woody Hood Please click the below link to view image of tracing.
--- NOTE | 2025-05-18 12:42 | NUR ---
PT IS FEELING DROWSEY DUE TO THE NARCOTIC THAT WAS GIVEN. PT DOES NOT HAVEW ANYONE TO DRIVE HER HOME. WILL CONTINUE TO MONITOR PT. CHARGE NURSE WAS MADE AWARE.
--- NOTE | 2025-05-18 13:32 | NUR ---
PT IS ALERT, AWAKE AND WAS ABLE TO WALK BEFORE DISCHARGE.
[2025-05-18 13:33] VITALS: BP 166/96; PULSE 72; RESP 12; TEMP 98.9; O2SAT 99
== END 2025-05-18 13:44 | disposition home or self-care (01) ==
LOC: EDH 09:22
DX: R10.9 Unspecified abdominal pain (principal); E11.9 Type 2 diabetes mellitus without complications; E78.00 Pure hypercholesterolemia, unspecified; I10 Essential (primary) hypertension; Z79.899 Other long term (current) drug therapy; Z88.0 Allergy status to penicillin; Z90.49 Acquired absence of other specified parts of digestive tract; Z90.710 Acquired absence of both cervix and uterus
CPT/HCPCS: 99285; 74176; 96374; 96361; 96375; 80076; 84484; 80048; 83690; 85025; 87086; 81001; 36415; 93005; J1171; J7030; J2405

== ENCOUNTER 2025-07-16 12:38 | Observation (INO) | payer OTHER, MEDICARE ==
[~2025-07-16] VITALS: Ht 152.4 cm; Wt 63.2 kg
--- NOTE | 2025-07-16 12:56 | ERN ---
ED Note History of Present Illness Stated Complaint: ABD PAIN Chief Complaint: Abdominal Pain Time Seen by MD: 12:43 Time Seen by Midlevel: 12:48 Dictation: Ms. Desai is a 65-year-old female with history of hypertension, hyperlipidemia, nicotine dependence, diverticulosis/diverticulitis, and type 2 diabetes who presented to the emergency department this afternoon for evaluation of abdominal pain. She reports four days of lower abdominal/left-sided abdominal pain. States that yesterday she had some diarrhea with mucus and she states she had mobile soft/formed stool earlier today. She reports having nausea without emesis. She states pain increased, rates 05/27, prompting her to come to the hospital. She was seen this ED in May for same; workup was unremarkable and she was discharged to home with prescription for Bentyl. She states she has seen GI and has had endoscopy and colonoscopy. She states that they told her that her that she has "problem with her intestines and may eventually need surgery" She states that she has her next appointment scheduled for 07/25. She denies fever, chills, shortness of breath, cough, chest pain, palpitations, edema, vomiting, hematemesis, constipation, melena, hematochezia, dysuria, headache, dizziness, or focal weakness/paresthesia Allergies: Coded Allergies: piperacillin (Unverified Allergy, Intermediate, HIVES, 02/04/25) tazobactam (Unverified Allergy, Intermediate, HIVES, 02/04/25) ketorolac (Unverified Allergy, Unknown, 07/16/25) propoxyphene (Unverified Allergy, Unknown, 07/16/25) Home Meds Active Scripts Ondansetron (Ondansetron Odt) 4 Mg Tab.rapdis, 4 MG PO Q6HPRN PRN for nausea, #15 TAB 0 Refills Prov:GABBY MOELLER [facility] 07/16/25 Hyoscyamine Sulfate (Levsin-Sl) 0.125 Mg Tab.subl, 0.125 MG SL Q6HPRN for abdominal pain/cramping, #12 TAB.SL 0 Refills Prov:GABBY MOELLER [facility] 07/16/25 Dicyclomine HCl (Bentyl) 20 Mg Tab, 1 TAB PO BID for irritable bowel symptoms for 10 Days, #20 TAB 0 Refills Prov:RAYO COTO MD 05/18/25 Tramadol HCl/Acetaminophen (Tramadol-Acetaminophn 37.5-325) 37.5 Mg-325 Mg Tablet, 2 TAB PO Q6HPRN PRN for PAIN LEVEL 6 TO 10, #15 TAB 0 Refills Prov:LUCIANO LANCASTER [employer] 05/08/25 Metronidazole (Metronidazole) 500 Mg Tablet, 1 TAB PO BID for 5 Days, #14 TAB 0 Refills Prov:MICHELLE DESAI HAND RE[employer]ER 02/09/25 Levofloxacin (Levaquin 750Mg Tabs) 750 Mg Tablet, 1 TAB PO DAILY for 5 Days, #5 TAB 0 Refills Prov:MICHELLE DESAI [employer]ER 02/09/25 Reported Medications Ergocalciferol (Vitamin D2) (Vitamin D2) 1,250 Mcg (02462 Unit) Capsule, 1 CAP PO QWEEK 02/04/25 Lisinopril (Lisinopril) 20 Mg Tablet, 1 TAB PO DAILY 02/04/25 Chlorthalidone (Chlorthalidone) 25 Mg Tablet, 1 TAB PO DAILY 02/04/25 Methocarbamol (Methocarbamol) 500 Mg Tablet, 2 TAB PO QID 02/04/25 Rosuvastatin Calcium (Rosuvastatin Calcium) 20 Mg Tablet, 1 TAB PO HS 02/04/25 Tramadol Hcl (Tramadol HCl) 50 Mg Tablet, 1 TAB PO BID 02/04/25 Past Medical History Past Medical History: Diabetes-Type II, Diverticulitis, High Cholesterol, Hypertension Surgical History: Appendectomy, Hysterectomy Surgical History Other: CERVICAL SPINE SX History: Not Applicable RN Note Reviewed/Agreed w/PFSH: Yes Review of System Dictation REVIEW OF SYSTEMS: CONSTITUTIONAL: Patient denies fevers, chills, sweats and weight changes. EYES: Patient denies any visual symptoms. EARS, NOSE, AND THROAT: No difficulties with hearing. No symptoms of rhinitis or sore throat. CARDIOVASCULAR: Patient denies chest pains, palpitations, orthopnea and paroxysmal nocturnal dyspnea. RESPIRATORY: No dyspnea on exertion, no wheezing or cough. GI: No vomiting, constipation, hematemesis, hematochezia or melena. Reports lower abdominal cramping and left-sided abdominal pain x4 days. Pain worse today; rates 10/10. Reports nausea without vomiting. Reports history of diverticulosis/diverticulitis. : No urinary hesitancy or dribbling. No nocturia or urinary frequency. No abnormal urethral discharge. MUSCULOSKELETAL: No myalgias or arthralgias. NEUROLOGIC: No chronic headaches, no seizures. Patient denies numbness, tingling or weakness. PSYCHIATRIC: Patient denies problems with mood disturbance. No problems with anxiety. ENDOCRINE: No excessive urination or excessive thirst. DERMATOLOGIC: Patient denies any rashes or skin changes. Initial Vital Sign VS Vital Signs Date Time Temp Pulse Resp B/P (MAP) Pulse Ox O2 Delivery O2 Flow Rate FiO2 07/16/25 12:40 98.1 82 18 133/92 97 07/16/25 13:00 Room Air* 0 21 Physical Exam Dictation Vital signs: Reviewed. Afebrile Constitutional: Restless/uncomfortable. Smells of cigarette smoke Head/Face: Normocephalic, atraumatic. Eyes: Periorbital areas with no swelling, redness, or edema. Lids and lashes are normal. Conjunctival injection is absent. Sclera anicteric. Pupils equal, round, reactive to light. ENT: Pinnas intact and no signs of trauma or erythema. Ear canals clear and no discharge. TMs no erythema. No nasal discharge or bleeding noted. Oropharynx with no exudate, redness, swelling, masses, exudates, or evidence of obstruction. Uvula midline. Mucous membranes moist. Neck: Trachea midline, no masses palpated, and no cervical lymphadenopathy. No swelling. Supple, full range of motion. Chest/Axilla: No tenderness, no crepitus, no paradoxical movement, no retractions. Cardiovascular: Regular rate, regular rhythm, no murmur, no gallops. Symmetric pulses. No peripheral edema. Respiratory: Respirations even and unlabored. Lung sounds clear; no wheezes, rales or rhonchi. Room air SpO2 97% Gastrointestinal: Bowel sounds are normal. No mass or organomegaly . + guarding. Tenderness upon palpation LUQ and LLQ. Neurological: Normal speech, gross motor function intact, gross sensory function intact. No focal weakness/Paresthesia. Musculoskeletal/Extremities: All extremities have full range of motion, no pain or tenderness on palpation. Symmetric pulses. Integumentary: Intact. Skin is normal color, warm and dry. Cap refill less than 3 seconds. Results (Laboratory/Radiology) Laboratory/Radiology Laboratory Tests Test 07/16/25 13:01 07/16/25 13:02 Urine Color YELLOW (YELLOW) Urine Appearance CLEAR (CLEAR) Urine pH 6.0 (5.0-8.0) Urine Specific [place] <=1.005 (1.001-1.031) Urine Protein NEGATIVE mg/dL (NEGATIVE) Urine Glucose (UA) NEGATIVE mg/dL (NEGATIVE) Urine Ketones NEGATIVE mg/dL (NEGATIVE) Urine Occult Blood NEGATIVE (NEGATIVE) Urine Nitrate NEGATIVE (NEGATIVE) Urine Bilirubin NEGATIVE mg/dL (NEGATIVE) Urine Urobilinogen 0.2 mg/dL (0.2-1.0) Urine Leukocyte Esterase NEGATIVE Jennifer/uL White Blood Count 11.2 K/uL (4.8-10.8) H Red Blood Count 4.19 MIL/uL (4.00-5.50) Hemoglobin 13.6 g/dL (12.0-16.0) Hematocrit 41.2 % (36-48) Mean Corpuscular Volume 98.3 fL (79-99) Mean Corpuscular Hemoglobin 32.5 pg (27.0-33.0) Mean Corpuscular Hemoglobin Concent 33.0 g/dL (32.0-36.0) Red Cell Distribution Width 13.2 % (11.0-15.5) Platelet Count 353 K/uL (130-400) Mean Platelet Volume 8.7 fL (7.5-10.5) Immature Granulocyte % (Auto) 0.3 % (0-1) Neutrophils (%) (Auto) 61.5 % (40.0-77.0) Lymphocytes (%) (Auto) 29.8 % (21.0-51.0) Monocytes (%) (Auto) 5.1 % (3.0-13.0) Eosinophils (%) (Auto) 2.7 % (0.0-8.0) Basophils (%) (Auto) 0.6 % (0.0-5.0) Neutrophils # (Auto) 6.9 K/uL (1.8-7.7) Lymphocytes # (Auto) 3.3 K/uL (1.0-4.8) Monocytes # (Auto) 0.6 K/uL (0.1-1.0) Eosinophils # (Auto) 0.30 K/uL (0.00-0.70) Basophils # (Auto) 0.07 K/uL (0.00-0.20) Absolute Immature Granulocyte (auto 0.03 K/uL (0-1) Nucleated Red Blood Cells 0.0 % (0.0-0.19) Sodium Level 133 mmol/L (136-145) L Potassium Level 3.8 mmol/L (3.5-5.1) Chloride Level 98 mmol/L (101-111) L Carbon Dioxide Level 24 mmol/L (21-32) Blood Urea Nitrogen 17 mg/dL (7-18) Creatinine 1.2 mg/dL (0.5-1.0) H Glomerular Filtration Rate Calc 50 mL/min (>90) Random Glucose 114 mg/dL (70-105) H Total Calcium 9.4 mg/dL (8.5-10.1) Total Bilirubin 0.3 mg/dL (0.2-1.0) Direct Bilirubin 0.1 mg/dL (0.0-0.3) Aspartate Amino Transf (AST/SGOT) 17 U/L (10-37) Alanine Aminotransferase (ALT/SGPT) 26 U/L (12-78) Alkaline Phosphatase 98 U/L (50-136) Total Protein 7.8 g/dL (6.0-8.3) Albumin 4.1 g/dL (3.5-5.0) Lipase 30 U/L (16-77) Labs Reviewed?: Yes CT Scan Comment: PATIENT: JACIEL DESAI MR#: [id number] : 1960 SEX: F AGE: 65 LOCATION: [facility] ORDER [id number] STATUS: REG REPORT#: [id number] SERVICE 1253 REASON: abd pain concern for diverticulitis ORDERING PHYSICIAN: GABBY MOELLER PROCEDURE: ABD PEL W - CT ABDOMEN/PELVIS W/CONTRAST EXAM: CT Abdomen and Pelvis with IV contrast CLINICAL HISTORY: abd pain concern for diverticulitis TECHNIQUE: Axial computed tomography images of the abdomen and pelvis with intravenous contrast. CONTRAST: with intravenous contrast. COMPARISON: None provided. FINDINGS: LUNG BASES: The lung bases appear clear. No pleural effusions are seen. LIVER: Unremarkable. GALLBLADDER AND BILE DUCTS: The gallbladder appears within normal limits. No radioopaque gallstones are seen. No biliary ductal dilatation is evident. PANCREAS: Unremarkable. SPLEEN: Unremarkable. ADRENAL GLANDS: Unremarkable. KIDNEYS, URETERS, AND BLADDER: The kidneys appear within normal limits. There is no hydronephrosis or hydroureter. No urinary calculi are seen. STOMACH AND BOWEL: Unremarkable appearance of the stomach and bowel. No evidence of bowel obstruction. No evidence suggesting enteritis or colitis. APPENDIX: No evidence of acute appendicitis on CT examination. PERITONEUM: No free fluid. No free air. LYMPH NODES: No lymphadenopathy is evident. REPRODUCTIVE: Unremarkable as visualized. VASCULATURE: No evidence of abdominal aortic aneurysm. BONES: No aggressive appearing osseous lesion. No acute osseous pathology evident. IMPRESSION: No acute intra-abdominal or pelvic abnormality. /[place] DICTATED BY: PUSHPA CARTAGENA DO DATE: 07/16/251604 ELECTRONICALLY SIGNED BY: PUSHPA CARTAGENA DO DATE: 07/16/251604 ED Course ED Course Orders Procedure Category Date Status Time Cbc With Differential LAB 07/16/25 Complete 12:53 Basic Metabolic Panel LAB 07/16/25 Complete 12:53 Hepatic Function Panel LAB 07/16/25 Complete 12:53 Urinalysis Profile LAB 07/16/25 Complete 12:53 Lipase LAB 07/16/25 Complete 12:53 Ct Abdomen/Pelvis CT 07/16/25 Resulted W/Contrast 12:53 Ondansetron 4mg Inj PHA 07/16/25 Complete (Zofran 4mg Inj) 13:00 Hydromorphone 0.5mg PHA 07/16/25 Complete Syg (Dilaudid 0.5mg 13:00 Iohexol (Omnipaque) PHA 07/16/25 Complete 13:30 Hydromorphone 0.5mg PHA 07/16/25 Complete Syg (Dilaudid 0.5mg 15:30 Hyoscyamine Sulfate PHA 07/16/25 Complete (Levsin) 15:30 Admit Orders ADM 07/16/25 Transmitted 16:36 Activity: Bed Rest CPOE 07/16/25 Transmitted 16:36 Initiate JORDAN 07/16/25 In Process Hyperglycemia Protoco 16:36 Current Medications Medications (Trade) Dose Ordered Sig/Krishan Route PRN Reason Start Time Stop Time Status Last Admin Dose Admin Hydromorphone HCl (DiLAUDid 0.5MG INJ) 0.5 mg ONCE ONCE IVP 07/16/25 13:00 07/16/25 13:01 DC 07/16/25 13:36 Hydromorphone HCl (DiLAUDid 0.5MG INJ) 0.5 mg ONCE ONCE IVP 07/16/25 15:30 07/16/25 15:31 DC 07/16/25 15:50 Hyoscyamine Sulfate (Levsin) 0.125 mg ONCE ONCE SL 07/16/25 15:30 07/16/25 15:31 DC 07/16/25 15:50 Iohexol (Omnipaque) 75 ml STK-MED ONCE IV 07/16/25 13:30 07/16/25 13:30 DC Ondansetron HCl (zoFRAN 4MG INJ) 4 mg ONCE ONCE IVP 07/16/25 13:00 07/16/25 13:01 DC 07/16/25 13:37 Vital Signs Date Time Temp Pulse Resp B/P (MAP) Pulse Ox O2 Delivery O2 Flow Rate FiO2 07/16/25 15:51 73 18 125/70 97 Room Air* 0 07/16/25 14:35 98.1 65 20 115/52 95 Room Air* 0 21 07/16/25 13:00 98.1 80 20 121/53 96 Room Air* 0 07/16/25 12:40 98.1 82 18 133/92 97 Vital signs remain stable; normotensive and afebrile with room air spo2 96-97%. CT scan of the abdomen and pelvis is unremarkable; no signs of diverticulitis or bowel obstruction. No constipation. Left very findings as noted below. WBCs 11.2, Na/Cl 133/98, cr 1.2, and glucose 114. UA is clear. She received doses Hycosamine, Zofran and multiple doses Dilaudid but still complains of 10/10 pain to left side of abdomen. She states that she cannot go home. Findings discussed with Uvaldo [facility] [facility] who accepts patient for admission to group. Medical Decision Making MDM MDM: Differential diagnosis: Acute diverticulitis, constipation, SBO, UTI Rationale: Tests considered and ordered secondary to shared decision making include: labs, ECG and radiology Previous outside records reviewed: Old ER visits. Risk of complication and/or morbidity or mortality of patient management: None Medications-Per medication reconciliation Need for hospitalization: Patient does meet criteria for hospitalization. Need for emergency major/minor surgery: No There are no social concerns with this patient. Prescription drug management Prescriptions will include symptomatic care Patient's prior external medical records from other ER visits were reviewed by me as indicated. Prior testing and results from previous visits were reviewed. Prior tests were taken into account with medical decision making and resource utilization, independent historian/historians were used to obtain complete medical history. I independently interpreted the test that were performed, results were reviewed by me and considered findings on radiology if ordered. Medical management and examination interpretation discussions were had by me with other qualified healthcare professionals as indicated for the patient's care. DX & DISP Disposition: Observation Departure Impression: Primary Impression: Acute abdominal pain Additional Impression: Intractable abdominal pain Condition: Stable Assign Patient to: Dr. Allan Dominguez Ondansetron (Ondansetron Odt) 4 Mg Tab.rapdis 4 MG PO Q6HPRN PRN for nausea, #15 TAB 0 Refills Prov: GABBY MOELLER [facility] 07/16/25 Hyoscyamine Sulfate (Levsin-Sl) 0.125 Mg Tab.subl 0.125 MG SL Q6HPRN for abdominal pain/cramping, #12 TAB.SL 0 Refills Prov: GABBY MOELLER [facility] 07/16/25 Referrals: AMANDA COON MD (PCP) ATTESTATION BY PHYSICIAN I PERFORMED THE SUBSTANTIVE PORTION OF THE VISIT. I HAVE REVIEWED AND PERSONALLY MADE AND APPROVED THE MANAGEMENT PLAN THAT IS DOCUMENTED IN THE NOTE BY MYSELF FOR THE A PP. GABBY MOELLER [facility] Jul 16, 2025 12:56 SHANE LEUNG MD Jul 16, 2025 18:13
--- NOTE | 2025-07-16 13:01 | NUR ---
PENDING GFR RESULTS, IV SITE, & CONSENT FOR CT EXAM.
[2025-07-16 13:14] LABS: IMMATURE GRANULOCYTE ABSOLUTE 0.03 K/uL (0-1); NUCLEATED RED BLOOD CELLS 0.0 % (0.0-0.19); PLATELET COUNT (AUTO) 353 K/uL (130-400); RED BLOOD CELL COUNT(AUTO) 4.19 MIL/uL (4.00-5.50); RED CELL DISTRIBUTION WIDTH 13.2 % (11.0-15.5); WHITE BLOOD COUNT (AUTO) 11.2 K/uL (4.8-10.8)
[2025-07-16 13:15] LABS: APPEARANCE,URINE CLEAR (CLEAR); GLUCOSE, URINE (UA) NEGATIVE (NEGATIVE); LEUKOCYTE ESTERASE ,URINE NEGATIVE Leu/uL (NEGATIVE); NITRATE,URINE NEGATIVE (NEGATIVE); OCCULT BLOOD,URINE NEGATIVE (NEGATIVE)
[2025-07-16 13:16] LABS: ADD UA MICROSCOPIC NO
[2025-07-16 13:23] LABS: CREATININE 1.2 mg/dL (0.5-1.0); GLOMERULAR FILTR. RATE CALC 50.0 mL/min (>90); GLUCOSE,RANDOM 114.0 mg/dL (70-105); SODIUM SERUM 133.0 mmol/L (136-145); UREA NITROGEN, BLOOD 17.0 mg/dL (7-18)
[2025-07-16 13:27] LABS: ASPARTATE AMINOTRANSFERASE 17.0 U/L (10-37); TOTAL PROTEIN, SERUM 7.8 g/dL (6.0-8.3)
[2025-07-16] MEDS ORDERED: IOHEXOL-350 75 ML VIAL IV ONE (13:30)
--- NOTE | 2025-07-16 15:06 | HMCIMG ---
EXAM: CT Abdomen and Pelvis with IV contrast CLINICAL HISTORY: abd pain concern for diverticulitis TECHNIQUE: Axial computed tomography images of the abdomen and pelvis with intravenous contrast. CONTRAST: with intravenous contrast. COMPARISON: None provided. FINDINGS: LUNG BASES: The lung bases appear clear. No pleural effusions are seen. LIVER: Unremarkable. GALLBLADDER AND BILE DUCTS: The gallbladder appears within normal limits. No radioopaque gallstones are seen. No biliary ductal dilatation is evident. PANCREAS: Unremarkable. SPLEEN: Unremarkable. ADRENAL GLANDS: Unremarkable. KIDNEYS, URETERS, AND BLADDER: The kidneys appear within normal limits. There is no hydronephrosis or hydroureter. No urinary calculi are seen. STOMACH AND BOWEL: Unremarkable appearance of the stomach and bowel. No evidence of bowel obstruction. No evidence suggesting enteritis or colitis. APPENDIX: No evidence of acute appendicitis on CT examination. PERITONEUM: No free fluid. No free air. LYMPH NODES: No lymphadenopathy is evident. REPRODUCTIVE: Unremarkable as visualized. VASCULATURE: No evidence of abdominal aortic aneurysm. BONES: No aggressive appearing osseous lesion. No acute osseous pathology evident. IMPRESSION: No acute intra-abdominal or pelvic abnormality. /[place]
[2025-07-16] MEDS: HYOSCYAMINE SULFATE 0.125 MG TAB.SUBL SL ONE (15:50)
--- NOTE | 2025-07-16 16:16 | NUR ---
PT IS SITTING ON THE SIDE OF THE BED AT THIS TIME. ASSISTED PT AMBULATING TO THE BATHROOM AND WHEN SHE CAME BACK SHE INSISTED IN SITTING UP ON THE SIDE OF THE BED. PT EDUCATED ON FALL RISKS. CALL LIGHT WITHIN REACH AND BED LOCKED IN LOWEST POSITION.
--- NOTE | 2025-07-16 19:18 | HP ---
[facility] HISTORY & PHYSICAL Date Patient Seen: Jul 16, 2025 Time of Visit: 19:16 Supervising Physician:Dr Van Vogel Primary Care Physician: Dr Jaime Amaya Outpatient Specialists: [ ] Inpatient Consults: [ ] PROBLEM LIST: Acute on chronic Abdominal cramps, POA Primary Hypertension, POA Hyperlipidemia, POA Diabetes mellitus type II with hyperglycemia, POA Bipolar disorder Anxiety and Depression History of chronic gastritis s/p EGD which shows gastritis and hiatal hernia last 02/07/2025 Tobacco use, smoked one pack per day PLAN: Admit to medical-surgical floor VS per unit protocol Multimodal pain relief Keep SBP less than 160 P.r.n. hydralazine and labetalol Keep serum glucose less than 150 ISS and fingerstick per unit protocol Keep patient NPO for now Encouraged smoking cessation Nicotine patch as needed Bilateral SCDs CBC, CMP, magnesium level daily HPI: 65-year-old female with past medical history of hypertension, hyperlipidemia, DM type 2, chronic gastritis, chronic abdominal pain, who p resented to ED with complaint of abdominal cramps. Patient was seen and examined in ED with no relatives present at bedside. Apparently he has been having issues with abdominal cramps for the past several days, was supposed to have an appointment with GI doctor however there is no available scheduled at this time. There is no associated vomiting, diarrhea, fever, or low back pain. There is also no associated CVA tenderness. In ED stat CBC was done showed mild leukocytosis without left shift, her muskrat trapper ry significant for sodium level of133 with mild [address]HELLE. CT of the abdomen was done and showed no acute intra-abdominal process. At present patient is currently hemodynamically stable, still with complaint of abdominal cramps, denies any headache, chest pain, flu-like symptoms, cough, or difficulty urinating. Patient is a current day smoker, denies any alcohol use, or illicit drug use. PAST MEDICAL HX: see above PAST SURGICAL HX: noncontributory SOCIAL HISTORY: See HPI Coded Allergies: piperacillin (Unverified Allergy, Intermediate, HIVES, 02/04/25) tazobactam (Unverified Allergy, Intermediate, HIVES, 02/04/25) ketorolac (Unverified Allergy, Unknown, 07/16/25) propoxyphene (Unverified Allergy, Unknown, 07/16/25) REVIEW OF SYSTEMS: 12 point ROS reviewed with patient. Pertinent positives mentioned above. Otherwise negative. PHYSICAL EXAM: GENERAL: alert, weak, awake oriented x 3 HEENT: EOMI, Sclera non icteric, moist mucosa NECK: Supple, no JVD, trachea midline LUNGS: Clear breath sounds bilaterally. No wheezes HEART: Regular rate and rhythm. Normal S1 and S2, without murmurs ABD: Positive for abdominal cramps, nondistended, with normal bowel sounds EXT: No clubbing cyanosis or edema NEURO: Alert and oriented to person, follows commands Vital Signs (last 8hr) Date Time Temp Pulse Resp B/P (MAP) Pulse Ox O2 Delivery O2 Flow Rate FiO2 07/16/25 15:51 73 18 125/70 97 Room Air* 0 21 07/16/25 14:35 98.1 65 20 115/52 95 Room Air* 0 21 07/16/25 13:00 98.1 80 20 121/53 96 Room Air* 0 21 07/16/25 12:40 98.1 82 18 133/92 97 LABS: Hematology Labs: Test 07/16/25 13:02 Range/Units White Blood Count 11.2 H 4.8-10.8 K/uL Red Blood Count 4.19 4.00-5.50 MIL/uL Hemoglobin 13.6 12.0-16.0 g/dL Hematocrit 41.2 36-48 % Mean Corpuscular Volume 98.3 79-99 fL Mean Corpuscular Hemoglobin 32.5 27.0-33.0 pg Mean Corpuscular Hemoglobin Concent 33.0 32.0-36.0 g/dL Red Cell Distribution Width 13.2 11.0-15.5 % Platelet Count 353 130-400 K/uL Mean Platelet Volume 8.7 7.5-10.5 fL Immature Granulocyte % (Auto) 0.3 0-1 % Neutrophils (%) (Auto) 61.5 40.0-77.0 % Lymphocytes (%) (Auto) 29.8 21.0-51.0 % Monocytes (%) (Auto) 5.1 3.0-13.0 % Eosinophils (%) (Auto) 2.7 0.0-8.0 % Basophils (%) (Auto) 0.6 0.0-5.0 % Neutrophils # (Auto) 6.9 1.8-7.7 K/uL Lymphocytes # (Auto) 3.3 1.0-4.8 K/uL Monocytes # (Auto) 0.6 0.1-1.0 K/uL Eosinophils # (Auto) 0.30 0.00-0.70 K/uL Basophils # (Auto) 0.07 0.00-0.20 K/uL Absolute Immature Granulocyte (auto 0.03 0-1 K/uL Nucleated Red Blood Cells 0.0 0.0-0.19 % Chemistry Labs: Test 07/16/25 13:02 Range/Units Sodium Level 133 L 136-145 mmol/L Potassium Level 3.8 3.5-5.1 mmol/L Chloride Level 98 L 101-111 mmol/L Carbon Dioxide Level 24 21-32 mmol/L Blood Urea Nitrogen 17 7-18 mg/dL Creatinine 1.2 H 0.5-1.0 mg/dL Glomerular Filtration Rate Calc 50 >90 mL/min Random Glucose 114 H 70-105 mg/dL Total Calcium 9.4 8.5-10.1 mg/dL Total Bilirubin 0.3 0.2-1.0 mg/dL Direct Bilirubin 0.1 0.0-0.3 mg/dL Aspartate Amino Transf (AST/SGOT) 17 10-37 U/L Alanine Aminotransferase (ALT/SGPT) 26 12-78 U/L Alkaline Phosphatase 98 50-136 U/L Total Protein 7.8 6.0-8.3 g/dL Albumin 4.1 3.5-5.0 g/dL Lipase 30 16-77 U/L DIAGNOSTICS / RADIOLOGY RESULTS: [ EXAM: CT Abdomen and Pelvis with IV contrast CLINICAL HISTORY: abd pain concern for diverticulitis TECHNIQUE: Axial computed tomography images of the abdomen and pelvis with intravenous contrast. CONTRAST: with intravenous contrast. COMPARISON: None provided. FINDINGS: LUNG BASES: The lung bases appear clear. No pleural effusions are seen. LIVER: Unremarkable. GALLBLADDER AND BILE DUCTS: The gallbladder appears within normal limits. No radioopaque gallstones are seen. No biliary ductal dilatation is evident. PANCREAS: Unremarkable. SPLEEN: Unremarkable. ADRENAL GLANDS: Unremarkable. KIDNEYS, URETERS, AND BLADDER: The kidneys appear within normal limits. There is no hydronephrosis or hydroureter. No urinary calculi are seen. STOMACH AND BOWEL: Unremarkable appearance of the stomach and bowel. No evidence of bowel obstruction. No evidence suggesting enteritis or colitis. APPENDIX: No evidence of acute appendicitis on CT examination. PERITONEUM: No free fluid. No free air. LYMPH NODES: No lymphadenopathy is evident. REPRODUCTIVE: Unremarkable as visualized. VASCULATURE: No evidence of abdominal aortic aneurysm. BONES: No aggressive appearing osseous lesion. No acute osseous pathology evident. IMPRESSION: No acute intra-abdominal or pelvic abnormality. PLAN NEURO: Minimize central acting medications as possible. Maintain fall precautions, adequate lighting during the day PULMONARY: Supplemental 02 as needed. Maintain aspiration precautions at all times CARDIOVASCULAR: Follow hemodynamics. Vital signs per facility protocol GI & NUTRITION: Continue with nutritional support. Continue stool softeners and laxatives as needed. KIDNEYS & ELECTROLYTES: Strict monitoring of intake, output and overall fluid balance. Avoid nephrotoxic medications to the extent possible. Medications to be dosed according to renal function. Monitor electrolytes and replace as needed ENDOCRINE: Maintain blood glucose between 100-180 at all times. Hypoglycemia protocol in place INFECTIOUS DISEASE: Trend temperature, WBC and procalcitonin level Follow cultures, deescalate antibiotics as soon as possible. Panculture if new onset fever ONCOLOGY/HEMATOLOGY/COAGULATION: Monitor for s/s of bleeding Monitor hemoglobin, coagulation studies as needed SKIN: Pressure ulcer prevention per facility protocol Specialty mattress ORTHO/REHAB: Continue PT/OT Prophylaxis: Continue GI and DVT prophylaxis Code Status: Full Resuscitation Disposition: TBD Supervising Physician: JIGNESH Moura AGACNP Jul 16, 2025 19:18
[2025-07-16] MEDS ORDERED: PHARMACY COMMUNICATION MISC SCH (19:30)
[2025-07-16] MEDS ORDERED: ALBUTEROL 0.083% 2.5 MG/3 ML INH IH PRN (19:30)
[2025-07-16] MEDS: SUCRALFATE 1 GM/10 ML PO SCH (19:54)
[2025-07-16] MEDS: LACTATED RINGERS 1000ML 1,000 ML IV SCH (19:55)
[2025-07-16] MEDS: DICYCLOMINE HCL 20 MG TAB PO SCH (21:00)
--- NOTE | 2025-07-16 21:27 | NUR ---
REPORT GIVEN TO NURSE LE RN WILL CONT TO MONITOR
[2025-07-16 21:40] VITALS: BP 137/81; PULSE 62; RESP 20; TEMP 98.1
[2025-07-16 22:00] VITALS: O2SAT 96
[2025-07-16 23:39] VITALS: RESP 18; O2SAT 95
[2025-07-17] VITALS (13 sets, daily range): BP systolic 106–173; BP diastolic 51–92; PULSE 61–86; RESP 18–20; TEMP 97.1–98.5; O2SAT 94–99
[2025-07-17 05:21] LABS: IMMATURE GRANULOCYTE ABSOLUTE 0.03 K/uL (0-1); NUCLEATED RED BLOOD CELLS 0.0 % (0.0-0.19); PLATELET COUNT (AUTO) 277 K/uL (130-400); RED BLOOD CELL COUNT(AUTO) 3.90 MIL/uL (4.00-5.50); RED CELL DISTRIBUTION WIDTH 13.2 % (11.0-15.5); WHITE BLOOD COUNT (AUTO) 9.5 K/uL (4.8-10.8)
[2025-07-17 05:43] LABS: CREATININE 1.0 mg/dL (0.5-1.0); GLOMERULAR FILTR. RATE CALC 63.0 mL/min (>90); GLUCOSE,RANDOM 110.0 mg/dL (70-105); PHOSPHORUS 4.3 mg/dL (2.5-4.9); SODIUM SERUM 135.0 mmol/L (136-145); UREA NITROGEN, BLOOD 15.0 mg/dL (7-18)
--- NOTE | 2025-07-17 09:49 | PN ---
[facility] PROGRESS NOTE Date Patient Seen: Jul 17, 2025 Time of Visit: 09:48 Supervising Physician: Dr. Van Desai Primary Care Physician: Dr. Jaime Amaya Outpatient Specialists: [ ] Inpatient Consults: Dr. Jason (GI) PROBLEM LIST: Acute on chronic abdominal cramps Acute hyponatremia Acute kidney injury Primary Hypertension Hyperlipidemia Diabetes mellitus type II with hyperglycemia Bipolar disorder Anxiety and Depression History of chronic gastritis s/p EGD which shows gastritis and hiatal hernia last 02/07/2025 History of diverticulosis Tobacco use, smoked one pack per day INTERVAL HISTORY: Patient assessed at bedside. AAOX3. Currently on room air. Complains of abdominal cramping at this time, but improved since admission. Endorses hunger. States she threw up phlegm earlier. No wheezing audible. States she smokes every day and doesn't plan on quitting. Start on nebulizer treatments. US abdomen and GI consulted for further recommendations. Creatinine improved to 1.0. Magnesium 1.6, covered per protocol. No family at bedside. Goals of care explained to patient, verbalized understanding. Plan: Consult GI for further recommendations, EGD in AM US abdomen Advance diet as tolerated Continue on Bentyl, sucralfate, Miralax Smoking cessation Nebulizer treatments, nicotine patch Start on steroids if any audible wheezing Continue on IV fluids AM labs REVIEW OF SYSTEMS: 12 point ROS reviewed with patient. Pertinent positives mentioned above. Othe rwise negative. PHYSICAL EXAM: GENERAL: alert, weak, awake oriented x 3 HEENT: EOMI, Sclera non icteric, moist mucosa NECK: Supple, no JVD, trachea midline LUNGS: Clear breath sounds bilaterally. No wheezes HEART: Regular rate and rhythm. Normal S1 and S2, without murmurs ABD: Positive for abdominal cramps, nondistended, with normal bowel sounds EXT: No clubbing cyanosis or edema NEURO: AAOX3, follows commands Vital Signs (last 8hr) Date Time Temp Pulse Resp B/P (MAP) Pulse Ox O2 Delivery O2 Flow Rate FiO2 07/17/25 07:40 98.1 61 18 173/92 99 Room Air 07/17/25 06:32 86 18 N/A Room Air 21 07/17/25 04:00 97.2 62 18 106/51 96 Room Air LABS: Hematology Labs: Test 07/17/25 05:05 Range/Units White Blood Count 9.5 4.8-10.8 K/uL Red Blood Count 3.90 L 4.00-5.50 MIL/uL Hemoglobin 12.6 12.0-16.0 g/dL Hematocrit 38.5 36-48 % Mean Corpuscular Volume 98.7 79-99 fL Mean Corpuscular Hemoglobin 32.3 27.0-33.0 pg Mean Corpuscular Hemoglobin Concent 32.7 32.0-36.0 g/dL Red Cell Distribution Width 13.2 11.0-15.5 % Platelet Count 277 130-400 K/uL Mean Platelet Volume 8.7 7.5-10.5 fL Immature Granulocyte % (Auto) 0.3 0-1 % Neutrophils (%) (Auto) 64.0 40.0-77.0 % Lymphocytes (%) (Auto) 24.5 21.0-51.0 % Monocytes (%) (Auto) 8.0 3.0-13.0 % Eosinophils (%) (Auto) 2.7 0.0-8.0 % Basophils (%) (Auto) 0.5 0.0-5.0 % Neutrophils # (Auto) 6.1 1.8-7.7 K/uL Lymphocytes # (Auto) 2.3 1.0-4.8 K/uL Monocytes # (Auto) 0.8 0.1-1.0 K/uL Eosinophils # (Auto) 0.26 0.00-0.70 K/uL Basophils # (Auto) 0.05 0.00-0.20 K/uL Absolute Immature Granulocyte (auto 0.03 0-1 K/uL Nucleated Red Blood Cells 0.0 0.0-0.19 % Chemistry Labs: Test 07/17/25 07:39 07/17/25 05:05 07/16/25 13:02 Range/Units Whole Blood Glucose 106 70-110 MG/DL Sodium Level 135 L 136-145 mmol/L Potassium Level 4.2 3.5-5.1 mmol/L Chloride Level 103 101-111 mmol/L Carbon Dioxide Level 23 21-32 mmol/L Blood Urea Nitrogen 15 7-18 mg/dL Creatinine 1.0 0.5-1.0 mg/dL Glomerular Filtration Rate Calc 63 >90 mL/min Random Glucose 110 H 70-105 mg/dL Total Calcium 9.1 8.5-10.1 mg/dL Phosphorus Level 4.3 2.5-4.9 mg/dL Magnesium Level 1.60 L 1.80-2.40 mg/dL Total Bilirubin 0.3 0.2-1.0 mg/dL Direct Bilirubin 0.1 0.0-0.3 mg/dL Aspartate Amino Transf (AST/SGOT) 17 10-37 U/L Alanine Aminotransferase (ALT/SGPT) 26 12-78 U/L Alkaline Phosphatase 98 50-136 U/L Total Protein 7.8 6.0-8.3 g/dL Albumin 4.1 3.5-5.0 g/dL Lipase 30 16-77 U/L DIAGNOSTICS / RADIOLOGY RESULTS: SERVICE 1253 REASON: abd pain concern for diverticulitis ORDERING PHYSICIAN: GABBY MOELLER PROCEDURE: ABD PEL W - CT ABDOMEN/PELVIS W/CONTRAST EXAM: CT Abdomen and Pelvis with IV contrast CLINICAL HISTORY: abd pain concern for diverticulitis TECHNIQUE: Axial computed tomography images of the abdomen and pelvis with intravenous contrast. CONTRAST: with intravenous contrast. COMPARISON: None provided. FINDINGS: LUNG BASES: The lung bases appear clear. No pleural effusions are seen. LIVER: Unremarkable. GALLBLADDER AND BILE DUCTS: The gallbladder appears within normal limits. No radioopaque gallstones are seen. No biliary ductal dilatation is evident. PANCREAS: Unremarkable. SPLEEN: Unremarkable. ADRENAL GLANDS: Unremarkable. KIDNEYS, URETERS, AND BLADDER: The kidneys appear within normal limits. There is no hydronephrosis or hydroureter. No urinary calculi are seen. STOMACH AND BOWEL: Unremarkable appearance of the stomach and bowel. No evidence of bowel obstruction. No evidence suggesting enteritis or colitis. APPENDIX: No evidence of acute appendicitis on CT examination. PERITONEUM: No free fluid. No free air. LYMPH NODES: No lymphadenopathy is evident. REPRODUCTIVE: Unremarkable as visualized. VASCULATURE: No evidence of abdominal aortic aneurysm. BONES: No aggressive appearing osseous lesion. No acute osseous pathology evident. IMPRESSION: No acute intra-abdominal or pelvic abnormality. PLAN NEURO: Minimize central acting medications as possible. Maintain fall precautions, adequate lighting during the day PULMONARY: Supplemental 02 as needed. Maintain aspiration precautions at all times CARDIOVASCULAR: Follow hemodynamics. Vital signs per facility protocol GI & NUTRITION: Continue with nutritional support. Continue stool softeners and laxatives as needed. KIDNEYS & ELECTROLYTES: Strict monitoring of intake, output and overall fluid balance. Avoid nephrotoxic medications to the extent possible. Medications to be dosed according to renal function. Monitor electrolytes and replace as needed ENDOCRINE: Maintain blood glucose between 100-180 at all times. Hypoglycemia protocol in place INFECTIOUS DISEASE: Trend temperature, WBC and procalcitonin level Follow cultures, deescalate antibiotics as soon as possible. Panculture if new onset fever ONCOLOGY/HEMATOLOGY/COAGULATION: Monitor for s/s of bleeding Monitor hemoglobin, coagulation studies as needed SKIN: Pressure ulcer prevention per facility protocol Specialty mattress ORTHO/REHAB: Continue PT/OT Prophylaxis: Continue GI and DVT prophylaxis Protonix and lovenox Code Status: Full Resuscitation Disposition: TBMICHELLE MAGANA Jul 17, 2025 09:48
[2025-07-17] MEDS ORDERED: HYOSCYAMINE SULFATE 0.125 MG TAB.SUBL SL PRN (10:30)
[2025-07-17] MEDS: MAGNESIUM 2GM PREMIX 50ML 50 ML IV PRN (12:17)
[2025-07-17] MEDS: BUDESONIDE 0.5 MG/2 ML INH IH SCH (18:45)
[2025-07-17] MEDS: LISINOPRIL 20 MG TABLET PO SCH (20:15)
[2025-07-18] VITALS (26 sets, daily range): BP systolic 103–168; BP diastolic 59–86; PULSE 55–88; RESP 15–20; TEMP 97.3–98.7; O2SAT 68–98
[2025-07-18 03:29] LABS: NUCLEATED RED BLOOD CELLS 0.0 % (0.0-0.19); PLATELET COUNT (AUTO) 256.0 K/uL (130-400); RED BLOOD CELL COUNT(AUTO) 3.69 MIL/uL (4.00-5.50); RED CELL DISTRIBUTION WIDTH 12.9 % (11.0-15.5); WHITE BLOOD COUNT (AUTO) 10.5 K/uL (4.8-10.8)
[2025-07-18 03:47] LABS: ASPARTATE AMINOTRANSFERASE 12.0 U/L (10-37); CREATININE 1.0 mg/dL (0.5-1.0); GLOMERULAR FILTR. RATE CALC 63.0 mL/min (>90); GLUCOSE,RANDOM 106.0 mg/dL (70-105); SODIUM SERUM 143.0 mmol/L (136-145); TOTAL PROTEIN, SERUM 6.5 g/dL (6.0-8.3); UREA NITROGEN, BLOOD 12.0 mg/dL (7-18)
--- NOTE | 2025-07-18 05:57 | HMCIMG ---
EXAMINATION: ULTRASOUND OF THE ABDOMEN WITH COLOR DOPPLER. CLINICAL HISTORY: Pain. COMPARISON: CT abdomen and pelvis with contrast dated 07/16/2025. TECHNIQUE: Real-time grayscale ultrasound images of the abdomen. In addition, color Doppler is medically necessary to perform in order to evaluate vascularity and blood flow. FINDINGS: Liver: Normal in caliber; the right hepatic lobe measures 15.6 cm in the craniocaudal dimension. There is increased echogenicity of the hepatic parenchyma. There is no focal hepatic abnormality or intrahepatic biliary ductal dilatation. There is normal spectral Doppler of the main portal vein (PSV-22 cm/s). Gallbladder: Within normal limits with normal wall thickness (0.1 cm). No hyperemia or pericholecystic free fluid. There is no cholelithiasis. Common bile duct is normal in caliber, measuring 0.4 cm. Spleen is normal in caliber and measures 7.9 x 1.0 x 2.1 cm in craniocaudal, AP, and transverse dimensions respectively. No focal lesions. Pancreas: Head and body are normal in caliber and echotexture. No calcification or dilated pancreatic duct. Tail is obscured by bowel gas. The kidneys are normal in caliber; the right kidney measures 9.4 x 4.4 x 3.5 cm in its craniocaudal, AP, and transverse dimensions, and the left kidney measures 8.3 x 4.9 x 3.1 cm in its craniocaudal, AP, and transverse dimensions. There is normal renal cortical thickness, and cortical echogenicity. There is no renal calculus. There is no hydronephrosis. The proximal, mid, and distal aspects of abdominal aorta are not visualized obscured by bowel gas. Visualized aspects of the inferior vena cava are unremarkable. IMPRESSION: Hepatic steatosis. No significant interval change. /[place]
[2025-07-18] MEDS: ENOXAPARIN SODIUM 40 MG/0.4 ML SYRINGE SQ SCH (09:00)
--- NOTE | 2025-07-18 09:07 | PN ---
[facility] PROGRESS NOTE Date Patient Seen: Jul 18, 2025 Time of Visit: 09:07 Supervising Physician: Piter Primary Care Physician: Dr. Jaime Amaya Outpatient Specialists: [ ] Inpatient Consults: Dr. Jason (GI) PROBLEM LIST: Acute on chronic abdominal cramps Acute hyponatremia Acute kidney injury Primary Hypertension Hyperlipidemia Diabetes mellitus type II with hyperglycemia Bipolar disorder Anxiety and Depression History of chronic gastritis s/p EGD which shows gastritis and hiatal hernia last 02/07/2025 History of diverticulosis Tobacco use, smoked one pack per day INTERVAL HISTORY: Patient evaluated at bedside today she endorses continued abdominal pain, when asked to discern exactly where this pain is located, she tells me that she is able to see it when it happens in the musculature in her abdominal wall, does not appear to be GI-related, her symptoms do not appear to be intestinal, This is potentially more of a musculature in the abdominal rectus muscles, she is going for EGD today, she states that she has just recently had an EGD in February with no acute findings, I've advised nursing staff to administer 10 milligrams of Baclofen TID starting after she has her meal, following her EGD, Patient is very concerned regarding her disposition, states that she is frequently in and out of the hospital and nobody has ever been able to provide her with answers regarding her symptoms, She denies ever having tried Baclofen for the symptoms, We will assess again today, comma, and follow up in the morning if the patient is not ready to discharge, Treatment plan discussed and accepted by the patient, Goals of care explained to patient, verbalized understanding. Plan: EGD this morning Baclofen t.i.d. to be initiated following her meal after EGD US abdomen Advance diet as tolerated Continue on Bentyl, sucralfate, Miralax Smoking cessation Nebulizer treatments, nicotine patch Start on steroids if any audible wheezing Continue on IV fluids AM labs REVIEW OF SYSTEMS: 12 point ROS reviewed with patient. Pertinent positives mentioned above. Otherwise negative. PHYSICAL EXAM: GENERAL: alert, weak, awake oriented x 3 HEENT: EOMI, Sclera non icteric, moist mucosa NECK: Supple, no JVD, trachea midline LUNGS: Clear breath sounds bilaterally. No wheezes HEART: Regular rate and rhythm. Normal S1 and S2, without murmurs ABD: Positive for abdominal cramps, nondistended, with normal bowel sounds EXT: No clubbing cyanosis or edema NEURO: AAOX3, follows commands Vital Signs (last 8hr) Date Time Temp Pulse Resp B/P (MAP) Pulse Ox O2 Delivery O2 Flow Rate FiO2 07/18/25 08:02 98.1 67 16 124/71 98 Room Air 07/18/25 06:32 58 20 N/A Room Air 21 07/18/25 04:00 98.4 73 15 115/67 97 Room Air LABS: Hematology Labs: Test 07/18/25 03:12 07/17/25 05:05 Range/Units White Blood Count 10.5 4.8-10.8 K/uL Red Blood Count 3.69 L 4.00-5.50 MIL/uL Hemoglobin 12.0 12.0-16.0 g/dL Hematocrit 35.6 L 36-48 % Mean Corpuscular Volume 96.5 79-99 fL Mean Corpuscular Hemoglobin 32.5 27.0-33.0 pg Mean Corpuscular Hemoglobin Concent 33.7 32.0-36.0 g/dL Red Cell Distribution Width 12.9 11.0-15.5 % Platelet Count 256 130-400 K/uL Mean Platelet Volume 8.8 7.5-10.5 fL Nucleated Red Blood Cells 0.0 0.0-0.19 % Immature Granulocyte % (Auto) 0.3 0-1 % Neutrophils (%) (Auto) 64.0 40.0-77.0 % Lymphocytes (%) (Auto) 24.5 21.0-51.0 % Monocytes (%) (Auto) 8.0 3.0-13.0 % Eosinophils (%) (Auto) 2.7 0.0-8.0 % Basophils (%) (Auto) 0.5 0.0-5.0 % Neutrophils # (Auto) 6.1 1.8-7.7 K/uL Lymphocytes # (Auto) 2.3 1.0-4.8 K/uL Monocytes # (Auto) 0.8 0.1-1.0 K/uL Eosinophils # (Auto) 0.26 0.00-0.70 K/uL Basophils # (Auto) 0.05 0.00-0.20 K/uL Absolute Immature Granulocyte (auto 0.03 0-1 K/uL Chemistry Labs: Test 07/18/25 05:51 07/18/25 03:12 07/17/25 05:05 07/16/25 13:02 Range/Units Whole Blood Glucose 111 H 70-110 MG/DL Sodium Level 143 136-145 mmol/L Potassium Level 3.8 3.5-5.1 mmol/L Chloride Level 107 101-111 mmol/L Carbon Dioxide Level 26 21-32 mmol/L Blood Urea Nitrogen 12 7-18 mg/dL Creatinine 1.0 0.5-1.0 mg/dL Glomerular Filtration Rate Calc 63 >90 mL/min Random Glucose 106 H 70-105 mg/dL Total Calcium 9.1 8.5-10.1 mg/dL Magnesium Level 1.50 L 1.80-2.40 mg/dL Total Bilirubin 0.3 0.2-1.0 mg/dL Aspartate Amino Transf (AST/SGOT) 12 10-37 U/L Alanine Aminotransferase (ALT/SGPT) 23 12-78 U/L Alkaline Phosphatase 83 50-136 U/L Total Protein 6.5 6.0-8.3 g/dL Albumin 3.3 L 3.5-5.0 g/dL Phosphorus Level 4.3 2.5-4.9 mg/dL Direct Bilirubin 0.1 0.0-0.3 mg/dL Lipase 30 16-77 U/L DIAGNOSTICS / RADIOLOGY RESULTS: [ ] PLAN NEURO: Minimize central acting medications as possible. Maintain fall precautions, adequate lighting during the day PULMONARY: Supplemental 02 as needed. Maintain aspiration precautions at all times CARDIOVASCULAR: Follow hemodynamics. Vital signs per facility protocol GI & NUTRITION: Continue with nutritional support. Continue stool softeners and laxatives as needed. KIDNEYS & ELECTROLYTES: Strict monitoring of intake, output and overall fluid balance. Avoid nephrotoxic medications to the extent possible. Medications to be dosed according to renal function. Monitor electrolytes and replace as needed ENDOCRINE: Maintain blood glucose between 100-180 at all times. Hypoglycemia protocol in place INFECTIOUS DISEASE: Trend temperature, WBC and procalcitonin level Follow cultures, deescalate antibiotics as soon as possible. Panculture if new onset fever ONCOLOGY/HEMATOLOGY/COAGULATION: Monitor for s/s of bleeding Monitor hemoglobin, coagulation studies as needed SKIN: Pressure ulcer prevention per facility protocol Specialty mattress ORTHO/REHAB: Continue PT/OT Prophylaxis: Continue GI and DVT prophylaxis Protonix and lovenox Code Status: Full Resuscitation Disposition: TBD ROSALES THOMAS PAC Jul 18, 2025 09:07
--- NOTE | 2025-07-18 12:19 | NUR ---
DCP:HOME Pt currently lives at home with her daughter Minoo Desai. Pt does not have any DME, home health, or provider services. Pt is able to complete ADLs independently. PCP is Dr. Jaime Olmos. At DC pt will return home and family can assist with transportation.
--- NOTE | 2025-07-18 12:37 | NUR ---
pt return back to room. denies any pain at the moment. bed position to lowest position call light with in reach. stable vs.
[2025-07-18] MEDS: BACLOFEN 10 MG TABLET PO SCH (13:09)
[2025-07-19] VITALS: BP 134/72; PULSE 65; RESP 18; TEMP 98.1
[2025-07-19 04:00] VITALS: BP 157/86; PULSE 67; RESP 18; TEMP 98.2
[2025-07-19 04:19] LABS: NUCLEATED RED BLOOD CELLS 0.0 % (0.0-0.19); PLATELET COUNT (AUTO) 280.0 K/uL (130-400); RED BLOOD CELL COUNT(AUTO) 3.71 MIL/uL (4.00-5.50); RED CELL DISTRIBUTION WIDTH 12.9 % (11.0-15.5); WHITE BLOOD COUNT (AUTO) 7.7 K/uL (4.8-10.8)
[2025-07-19 04:38] LABS: CREATININE 1.2 mg/dL (0.5-1.0); GLOMERULAR FILTR. RATE CALC 50.0 mL/min (>90); GLUCOSE,RANDOM 109.0 mg/dL (70-105); SODIUM SERUM 144.0 mmol/L (136-145); UREA NITROGEN, BLOOD 13.0 mg/dL (7-18)
[2025-07-19 07:45] VITALS: BP 155/88; PULSE 58; RESP 18; TEMP 98.1
[2025-07-19 08:00] VITALS: O2SAT 99
--- NOTE | 2025-07-19 11:12 | DS ---
[facility] DISCHARGE SUMMARY Date Patient Seen: Jul 19, 2025 Time of Visit: 11:12 Supervising Physician: Dr. Dumas Primary Care Physician: Dr. Jaime Amaya Outpatient Specialists: [ ] Inpatient Consults: Dr. Jason (GI) HOSPITAL COURSE: HPI (per admitting provider) 65-year-old female with past medical history of hypertension, hyperlipidemia, DM type 2, chronic gastritis, chronic abdominal pain, who presented to ED with complaint of abdominal cramps. Patient was seen and examined in ED with no relatives present at bedside. Apparently he has been having issues with abdominal cramps for the past several days, was supposed to have an appointment with GI doctor however there is no available scheduled at this time. There is no associated vomiting, diarrhea, fever, or low back pain. There is also no associated CVA tenderness. In ED stat CBC was done showed mild leukocytosis without left shift, her chemistry significant for sodium level of133 with mild [address]LE. CT of the abdomen was done and showed no acute intra-abdominal process. At present patient is currently hemodynamically stable, still with complaint of abdominal cramps, denies any headache, chest pain, flu-like symptoms, cough, or difficulty urinating. Patient is a current day smoker, denies any alcohol use, or illicit drug use. The patient was treated for the following problems: Patient evaluated on this admission for recurrent abdominal cramping, she associated this with the GI tract that has been worked up repeatedly for these symptoms. She went for EGD on this admission which was positive for gastritis. Patient's currently on omeprazole at home. In further conversation with the patient she endorses that she can see these cramps with a happening and that they are apparently in the abdominal wall and not necessarily in the GI tract. Consistent with the abdominal wall fasciculations. We trialed baclofen yesterday with some improvement overnight, she is being discharged today with PRN baclofen t.i.d. as well as Levsin PRN for abdominal cramping and advised to keep her follow up on the 29 of July with the GI team to see if this resolves her issue. ACTIVE PROBLEM LIST FOR THE HOSPITALIZATION: Acute on chronic abdominal cramps Acute hyponatremia Acute kidney injury CHRONIC PROBLEMS: continue previous management per PCP unless otherwise indicated Primary Hypertension Hyperlipidemia Diabetes mellitus type II with hyperglycemia Bipolar disorder Anxiety and Depression History of chronic gastritis s/p EGD which shows gastritis and hiatal hernia last 02/07/2025 History of diverticulosis Tobacco use, smoked one pack per day PRODUCTION HELPER FINDINGS/RECOMMENDATIONS: [ ] PROCEDURES: as mentioned above DISCHARGE MEDICATIONS: Pt hemodynamically stable and afebrile at time of discharge. PCP notified of patients admission, hospital course and discharge. PHYSICAL EXAM: GENERAL: alert, weak, awake oriented x 3 HEENT: EOMI, Sclera non icteric, moist mucosa NECK: Supple, no JVD, trachea midline LUNGS: Clear breath sounds bilaterally. No wheezes HEART: Regular rate and rhythm. Normal S1 and S2, without murmurs ABD: Positive for abdominal cramps, nondistended, with normal bowel sounds EXT: No clubbing cyanosis or edema NEURO: AAOX3, follows commands FOLLOW-UP: Follow-up with PCP in 2-3 days RECOMMENDATIONS: See Discharge Instructions This case was seen and discussed with my supervising physician. More than 30 minutes spent on discharge process, including evaluation of the patient, discussion with nursing staff, medication reconciliation and follow-up appointments ROSALES THOMAS PAC Jul 19, 2025 11:12
[2025-07-19 11:30] VITALS: BP 165/83; PULSE 60; RESP 19; TEMP 98
--- NOTE | 2025-07-19 12:14 | NUR ---
DISCHARGE PERIPHERAL IV REMOVED DISCHARGE EDUCATION AND INSTRUCTIONS PROVIDED TO PATIENT PATIENT AWARE TO FOLLOW UP WITH PCP IN 1 WEEK PATIENT AWARE TO CONTINUE HOME MEDICATIONS DIRECTED BY MD ALL QUESTIONS ANSWERED
--- NOTE | 2025-07-19 14:54 | PN ---
GASTROENTEROLOGY PROGRESS NOTE Date of Visit: Jul 19, 2025 Time of Visit: 14:54 Events / Notes: [ ] Review of Systems: CONSTITUTIONAL: No malaise or change in sensation of wellbeing. ENMT: No rhinorrhea, otorrhea, sinus pain, ear ache. CARDIOVASCULAR: No angina, palpitations, orthopnea or paroxysmal dyspnea. RESPIRATORY: No SOB. GASTROINTESTINAL: No abdominal pain, nausea, vomiting, diarrhea, hematemesis, melena or change in the patient's habitual bowel movements consistency/number. GENITOURINARY: No dysuria, hematuria or change in bladder continence. MUSCULOSKELETAL: No new muscle pain or decrease in muscular strength. No new joint swelling, redness or tenderness. SKIN: No new rash. Physical Exam: GEN: Awake, alert, oriented in person, time and place, and in no acute distress. HEENT: No sinus tenderness. Tympanic membranes were not examined. No rhinorrhea. Oral pharyngeal mucosa is pink, moist and within normal limits. Neck is supple with no cervical lymphadenopathy, thyromegaly or JVD. CHEST: Inspection, palpation and percussion of the chest were unremarkable. Lung auscultation revealed normal breath sounds bilaterally. CARDIAC: PMI is within normal limits. Heart sounds are regular. Normal S1, S2. No gallop or murmur. ABD: Soft, non-tender and not distended. No peritoneal signs on palpation. No organomegaly. Normal bowel sounds. EXT: No cyanosis or clubbing. No edema. SKIN: Intact. No rashes. JOINTS: No evidence of synovitis or acute arthritis. NEURO: Alert and oriented to name, place and person. Cranial nerve examination is unremarkable. No focal motor deficits. Normal speech. Gait is normal. Strength is normal. Vital Signs (last 8hr) Date Time Temp Pulse Resp B/P (MAP) Pulse Ox O2 Delivery O2 Flow Rate FiO2 07/19/25 11:30 98.1 60 19 165/83 99 Room Air 07/19/25 08:00 99 Room Air* 0 21 07/19/25 07:45 98.1 58 18 155/88 99 Room Air Laboratory: [ ] Laboratory: Test 07/19/25 11:03 07/19/25 09:33 07/19/25 04:12 07/18/25 03:12 Range/Units Whole Blood Glucose 93 70-110 MG/DL Lactic Acid Level 1.2 0.8-2.5 mmol/L White Blood Count 7.7 4.8-10.8 K/uL Red Blood Count 3.71 L 4.00-5.50 MIL/uL Hemoglobin 12.0 12.0-16.0 g/dL Hematocrit 36.0 36-48 % Mean Corpuscular Volume 97.0 79-99 fL Mean Corpuscular Hemoglobin 32.3 27.0-33.0 pg Mean Corpuscular Hemoglobin Concent 33.3 32.0-36.0 g/dL Red Cell Distribution Width 12.9 11.0-15.5 % Platelet Count 280 130-400 K/uL Mean Platelet Volume 9.1 7.5-10.5 fL Nucleated Red Blood Cells 0.0 0.0-0.19 % Sodium Level 144 136-145 mmol/L Potassium Level 4.4 3.5-5.1 mmol/L Chloride Level 109 101-111 mmol/L Carbon Dioxide Level 27 21-32 mmol/L Blood Urea Nitrogen 13 7-18 mg/dL Creatinine 1.2 H 0.5-1.0 mg/dL Glomerular Filtration Rate Calc 50 >90 mL/min Random Glucose 109 H 70-105 mg/dL Total Calcium 9.1 8.5-10.1 mg/dL Magnesium Level 1.50 L 1.80-2.40 mg/dL Total Bilirubin 0.3 0.2-1.0 mg/dL Aspartate Amino Transf (AST/SGOT) 12 10-37 U/L Alanine Aminotransferase (ALT/SGPT) 23 12-78 U/L Alkaline Phosphatase 83 50-136 U/L Total Protein 6.5 6.0-8.3 g/dL Albumin 3.3 L 3.5-5.0 g/dL Current Medications Medications (Trade) Dose Ordered Sig/Krishan Route PRN Reason Start Time Stop Time Status Last Admin Dose Admin Acetaminophen (TYLenol 325MG TAB) 650 mg Q6H PRN PO FEVER/MILD PAIN LEVEL 1-3 07/16/25 19:30 07/19/25 12:36 DC 07/18/25 13:11 650 MG Acetaminophen (TYLenol 650MG SUPPOSITORY) 650 mg Q6H PRN RC FEVER / MILD PAIN 1-3 IF NPO 07/16/25 19:30 07/19/25 12:36 DC Albuterol (DUOneb) 1 UDVIAL [id number] IH 07/17/25 12:00 07/18/25 10:23 DC 07/17/25 18:48 1 UDVIAL Albuterol Sulfate (Proventil 0.083% 2.5mg/3ml) 2.5 mg [id number] PRN IH SHORTNESS OF BREATH 07/16/25 19:30 07/19/25 12:36 DC Atorvastatin Calcium (LIPItor 40MG) 40 mg HS PO 07/17/25 21:00 07/19/25 12:36 DC 07/18/25 19:56 40 MG Baclofen (Baclofen) 10 mg TIDPC PO 07/18/25 12:30 07/19/25 12:36 DC 07/19/25 09:50 10 MG Budesonide (Pulmicort 0.5 Mg/2ml) 0.5 mg BIDRESP IH 07/17/25 18:00 07/18/25 10:23 DC 07/17/25 18:45 0.5 MG Dicyclomine HCl (Bentyl 20mg Tab) 20 mg BID PO 07/16/25 21:00 07/19/25 12:36 DC 07/19/25 09:50 20 MG Enoxaparin Sodium (Lovenox) 40 mg DAILY SQ 07/18/25 09:00 07/19/25 12:36 DC 07/19/25 09:51 40 MG Hydralazine HCl (APRESOLine 20MG INJ) 10 mg Q6H PRN IV SBP GREATER THAN 180 07/16/25 19:30 07/19/25 12:36 DC Hydromorphone HCl (DiLAUDid 1MG INJ) 0.5 mg Q2H PRN IVP MODERATE PAIN (4-6) 07/16/25 19:30 07/19/25 12:36 DC 07/18/25 17:00 0.5 MG Hydromorphone HCl (DiLAUDid 1MG INJ) 1 mg ONCE STAT IVP 07/16/25 23:20 07/16/25 23:23 DC 07/16/25 23:25 1 MG Hyoscyamine Sulfate (Levsin) 0.125 mg Q6H PRN SL abdominal pain 07/17/25 10:30 07/19/25 12:36 DC Insulin Human Regular (humuLIN R 100 UNIT/ML 3ML) INSULIN SLIDING SCAL... ACHS SQ 07/19/25 07:30 07/19/25 12:36 DC Insulin Human Regular (humuLIN R 100 UNIT/ML 3ML) INSULIN SLIDING SCAL... Q6H6 SQ 07/17/25 00:00 07/18/25 23:55 DC Labetalol HCl (TRANdate 20MG SYG) 10 mg Q2H PRN IV SBP GREATER THAN 180 07/16/25 19:30 07/17/25 06:22 DC Lactated Ringer's 1,000 ml @ 125 mls/hr Q8H IV 07/16/25 19:30 07/19/25 12:36 DC 07/19/25 06:49 125 MLS/HR Lisinopril (Prinivil 20mg) 20 mg HS PO 07/17/25 21:00 07/19/25 12:36 DC 07/18/25 19:56 20 MG Magnesium Sulfate 50 ml @ 0 mls/hr PROTOCOL PRN IV MAGNESIUM PROTOCOL 07/17/25 11:00 07/19/25 12:36 DC 07/18/25 08:44 25 MLS/HR Ondansetron HCl (zoFRAN 4MG INJ) 4 mg Q6H PRN IVP NAUSEA/VOMITING 07/16/25 19:30 07/19/25 12:36 DC 07/17/25 07:25 4 MG Pantoprazole Sodium (PROTonix 40MG INJ) 40 mg DAILY IVP 07/16/25 19:30 07/19/25 12:36 DC 07/19/25 09:50 40 MG Pharmacy Profile Note (Pharmacy Communication) 1 each ONCE MISC 07/16/25 19:30 07/16/25 19:38 DC Polyethylene Glycol (MIRalax 3350 17 GM POWD.PACK) 17 gm DAILY PO 07/17/25 09:00 07/19/25 12:36 DC 07/19/25 09:50 17 GM Sucralfate (Carafate) 1 gm Q6H PO 07/16/25 19:30 07/19/25 12:36 DC 07/19/25 06:45 1 GM Diagnostics / Radiology: [COPY/PASTE HERE IF NO REPORTS PLEASE DELETE SECTION] Assessment: [ ] Plan: [ ] MAGO CALIX BRAINER Jul 19, 2025 14:54
== END 2025-07-19 12:36 | disposition home or self-care (01) ==
LOC: EDH 12:38 → EDHIP 16:36 → 1MS 21:40
PROVIDERS: ADMIT Internal Medicine Critical Care Medicine; ATTEND Internal Medicine Critical Care Medicine
DX: K29.70 Gastritis, unspecified, without bleeding (principal); K44.9 Diaphragmatic hernia without obstruction or gangrene; K57.92 Diverticulitis of intestine, part unspecified, without perforation or abscess without bleeding; E11.65 Type 2 diabetes mellitus with hyperglycemia; D72.829 Elevated white blood cell count, unspecified; E78.00 Pure hypercholesterolemia, unspecified; E87.1 Hypo-osmolality and hyponatremia; F41.9 Anxiety disorder, unspecified; I10 Essential (primary) hypertension; F31.9 Bipolar disorder, unspecified; F17.200 Nicotine dependence, unspecified, uncomplicated; Z90.710 Acquired absence of both cervix and uterus; Z79.899 Other long term (current) drug therapy; Z98.890 Other specified postprocedural states
CPT/HCPCS: 96376 ×4; 96375; 99285; 80076; 80048 ×3; 83690; 85025 ×2; 81003; 36415 ×4; 74177; 96365; 96366 ×2; 83735 ×2; 84100; 82948 ×10; 76700; 94640; 80053; 85027 ×2; 88305; 88312; 43239; 96372; 83605; G0378 ×68; J7120 ×3; J1171 ×11; J2405; J2470 ×4; Q9967; J3475 ×2; J2704; A4620; A4215; A4223; A4657; A7002; A4222; J7030; A4606; J1650; 94664; J3490

== ENCOUNTER 2025-08-03 13:50 | Emergency (ER) | payer OTHER, MEDICARE ==
[~2025-08-03] VITALS: Ht 152.4 cm; Wt 65.3 kg
[~2025-08-03 13:50] MED LIST changes: +BACL10TA PO; +DICY20TA2 PO; +HYOS-28 PO; +HYOS0.124 SL; -LEVO750T68 PO; -METH-811 PO; -METR-172 PO; +OMEP40CA21 PO; +SUCR1ORA15 PO; -TRAM-543 PO; -TRAM50TA4 PO
[2025-08-03 13:51] VITALS: TEMP 97.4
--- NOTE | 2025-08-03 13:59 | NUR ---
PT JUST NOW PLACED IN ED BED 15
--- NOTE | 2025-08-03 14:22 | NUR ---
PT HYPERVENTILATING. INSTRUCTED AND SHOWN HOW TO ATTEMPT TO SLOW HER BREATHING. IN THROUGH THE NOSE AND OUT THROUGH THE MOUTH.
[2025-08-03] MEDS: 0.9%NACL 1000ML 1,000 ML IV SCH (15:26)
[2025-08-03 15:30] LABS: IMMATURE GRANULOCYTE ABSOLUTE 0.03 K/uL (0-1); NUCLEATED RED BLOOD CELLS 0.0 % (0.0-0.19); PLATELET COUNT (AUTO) 341 K/uL (130-400); RED BLOOD CELL COUNT(AUTO) 4.09 MIL/uL (4.00-5.50); RED CELL DISTRIBUTION WIDTH 13.0 % (11.0-15.5); WHITE BLOOD COUNT (AUTO) 11.2 K/uL (4.8-10.8)
[2025-08-03 15:35] LABS: CREATININE 1.1 mg/dL (0.5-1.0); GLOMERULAR FILTR. RATE CALC 56.0 mL/min (>90); GLUCOSE,RANDOM 98.0 mg/dL (70-105); SODIUM SERUM 137.0 mmol/L (136-145); UREA NITROGEN, BLOOD 19.0 mg/dL (7-18)
[2025-08-03 16:29] LABS: APPEARANCE,URINE CLEAR (CLEAR); GLUCOSE, URINE (UA) NEGATIVE (NEGATIVE); LEUKOCYTE ESTERASE ,URINE NEGATIVE Leu/uL (NEGATIVE); NITRATE,URINE NEGATIVE (NEGATIVE); OCCULT BLOOD,URINE NEGATIVE (NEGATIVE)
[2025-08-03 16:33] LABS: ADD UA MICROSCOPIC NO
--- NOTE | 2025-08-03 18:02 | HMCIMG ---
STUDY CT Abdomen and Pelvis Without IV contrast HISTORY Abdominal pain TECHNIQUE Axial computed tomography images of the abdomen and pelvis were obtained without intravenous contrast. COMPARISON CT abdomen/pelvis with contrast 07/16/2025; abdominal ultrasound 07/17/2025. FINDINGS Lung bases The visualized lung bases demonstrate minimal chronic parenchymal change in the form of scattered linear atelectasis or mild parenchymal scarring. No focal consolidation, suspicious pulmonary nodule, or features of interstitial lung disease are identified. Liver and biliary system The liver is unremarkable in size and attenuation, without focal hepatic lesion. The gallbladder appears within normal limits, with no radiopaque gallstones and no biliary ductal dilatation. Pancreas and spleen The pancreas and spleen are unremarkable. Adrenal glands The adrenal glands are normal in size and morphology without focal mass. Kidneys, ureters, and bladder Both kidneys are normal in size and contour. There is mild perinephric fat stranding bilaterally. No hydronephrosis, hydroureter, or urinary calculi are identified. The urinary bladder is unremarkable. Stomach and bowel The stomach and small bowel loops are unremarkable in course and caliber, with no evidence of obstruction, bowel wall thickening, or perienteric inflammatory change. There is uncomplicated colonic diverticulosis. Abundant colonic fecal matter may reflect constipation. Appendix The appendix is visualized and appears normal, without CT evidence of acute appendicitis. Peritoneum and lymph nodes No free intraperitoneal fluid or free air is identified. No pathologically enlarged abdominal or pelvic lymph nodes are seen. Reproductive organs The uterus is surgically absent. No adnexal mass is identified. Vasculature The abdominal aorta is normal in caliber with no evidence of aneurysm. Bones There is reduced disc space at L2L3 with opposing endplate sclerosis, in keeping with degenerative disc disease. No aggressive osseous lesion or acute fracture is identified. Pelvic floor and soft tissues There is rectal prolapse. The visualized soft tissues are otherwise unremarkable. IMPRESSION * Abundant colonic fecal matter may reflect constipation. There is no bowel obstruction. Rectal prolapse. * Uncomplicated colonic diverticulosis and mild bilateral perinephric fat stranding without obstructive uropathy, of uncertain clinical significance.Recommend correlation with renal function test. * Degenerative disc disease at L2L3 and minimal chronic basilar parenchymal change; no acute intra-abdominal or pelvic inflammatory process demonstrated. /Pisek
[2025-08-03] MEDS ORDERED: LACT-441 PO (18:44)
--- NOTE | 2025-08-03 18:45 | ERN ---
ED Note History of Present Illness Stated Complaint: SEVERE ABDOMINAL PAIN Chief Complaint: Abdominal Pain Time Seen by MD: 14:21 Time Seen by Midlevel: 14:25 Dictation: 65-year-old female coming in with complaints of cramp like pain to her generalized abdomen area. Patient states she has had this pain for many many months and has been seen multiple times here in the emergency room and by forestry instructor. Patient states just prior to arrival she was at the forestry instructor office but took too long to sent to her. Patient states she is currently on Nortriptylin 10 mg. States the medication does not help. Patient denies having any fever, nausea, vomiting or diarrhea. Allergies: Coded Allergies: piperacillin (Unverified Allergy, Intermediate, HIVES, 02/04/25) tazobactam (Unverified Allergy, Intermediate, HIVES, 02/04/25) ketorolac (Unverified Allergy, Unknown, 07/16/25) propoxyphene (Unverified Allergy, Unknown, 07/16/25) Home Meds Active Scripts Hyoscyamine Sulfate (Levsin) 0.125 Mg Tab, 1 TAB PO QID PRN for ABDOMINAL PAIN for 30 Days, #120 TAB 0 Refills Prov:ROSALES THOMAS PAC 07/19/25 Baclofen (Baclofen) 10 Mg Tablet, 1 TAB PO TID PRN for ABDOMINAL PAIN for 30 Days, #90 TAB 0 Refills Prov:ROSALES THOMAS PAC 07/19/25 Hyoscyamine Sulfate (Levsin-Sl) 0.125 Mg Tab.subl, 0.125 MG SL Q6HPRN for abdominal pain/cramping, #12 TAB.SL 0 Refills Prov:GABBY MO[facility]LLER [facility] 07/16/25 Dicyclomine HCl (Bentyl) 20 Mg Tab, 1 TAB PO BID for irritable bowel symptoms for 10 Days, #20 TAB 0 Refills Prov:RAYO COTO MD 05/18/25 Reported Medications Omeprazole (Omeprazole) 40 Mg Capsule.dr, 40 MG PO DAILY, CAP 07/16/25 Sucralfate (Sucralfate) 1 Gram/10 Ml Oral.susp, 1 GM PO TID, ML 07/16/25 Ergocalciferol (Vitamin D2) (Vitamin D2) 1,250 Mcg (36273 Unit) Capsule, 1 CAP PO QWEEK 02/04/25 Lisinopril (Lisinopril) 20 Mg Tablet, 1 TAB PO HS 02/04/25 Chlorthalidone (Chlorthalidone) 25 Mg Tablet, 1 TAB PO DAILY 02/04/25 Rosuvastatin Calcium (Rosuvastatin Calcium) 20 Mg Tablet, 1 TAB PO HS 02/04/25 Past Medical History Past Medical History: Diabetes-Type II, Diverticulitis, High Cholesterol, Hypertension Surgical History: Appendectomy, Hysterectomy Surgical History Other: CERVICAL SPINE SX History: Not Applicable Review of System Dictation Constitutional: Negative for fever,chills, and weight loss Eyes: Negative for injury, pain,redness, and discharge ENT: Negative for injury,pain or swelling Cardiovascular: Negative for chest pain, palpitations, and edema Respiratory: Negative for shortness of breath, cough, and wheezing, Abdomen/GI: Abdominal cramping Back: Negative for injury and pain : Negative for injury, bleeding and discharge MS/Extremity: Negative for injury and deformity Skin: Negative for rash, and discoloration Neuro: Negative for headache, weakness, numbness, tingling, and seizure Psych: Negative for suicide ideation, homicidal ideation, and hallucinations Review of Systems: was completed Initial Vital Sign VS Vital Signs Date Time Temp Pulse Resp B/P (MAP) Pulse Ox O2 Delivery O2 Flow Rate FiO2 08/03/25 13:51 97.3 133 28 164/95 99 Room Air Physical Exam Dictation General: awake, alert, NAD Head/Face: Normocephalic, atraumatic Eyes: PERRL, EOMI, vision at baseline ENT: oral cavity clear, TMs clear, no signs of infection Neck: Trachea midline, supple, no nuchal rigidity Cardiovascular: RRR, normal S1/S2, No MRGs, no JVD Respiratory: CTAB, no respiratory distress, No rales or wheezes Abdomen: Soft, non-tender, non-distended, normal bowel sounds, no guarding or rebound. Skin: Warm, dry, normal turgor, no rash MS/Extremity: Pulses equal, no cyanosis, neurovascular intact, FROM Neuro: COAx4, GCS 15, strength 5/5, CN 2-12 intact, normal cerebellar exam, normal gait, Psych: Normal behavior, mood, and affect normal Results (Laboratory/Radiology) Laboratory/Radiology Laboratory Tests Test 08/03/25 15:21 08/03/25 16:15 White Blood Count 11.2 K/uL (4.8-10.8) H Red Blood Count 4.09 MIL/uL (4.00-5.50) Hemoglobin 13.2 g/dL (12.0-16.0) Hematocrit 39.7 % (36-48) Mean Corpuscular Volume 97.1 fL (79-99) Mean Corpuscular Hemoglobin 32.3 pg (27.0-33.0) Mean Corpuscular Hemoglobin Concent 33.2 g/dL (32.0-36.0) Red Cell Distribution Width 13.0 % (11.0-15.5) Platelet Count 341 K/uL (130-400) Mean Platelet Volume 8.8 fL (7.5-10.5) Immature Granulocyte % (Auto) 0.3 % (0-1) Neutrophils (%) (Auto) 61.9 % (40.0-77.0) Lymphocytes (%) (Auto) 30.2 % (21.0-51.0) Monocytes (%) (Auto) 6.3 % (3.0-13.0) Eosinophils (%) (Auto) 0.8 % (0.0-8.0) Basophils (%) (Auto) 0.5 % (0.0-5.0) Neutrophils # (Auto) 6.9 K/uL (1.8-7.7) Lymphocytes # (Auto) 3.4 K/uL (1.0-4.8) Monocytes # (Auto) 0.7 K/uL (0.1-1.0) Eosinophils # (Auto) 0.09 K/uL (0.00-0.70) Basophils # (Auto) 0.06 K/uL (0.00-0.20) Absolute Immature Granulocyte (auto 0.03 K/uL (0-1) Nucleated Red Blood Cells 0.0 % (0.0-0.19) Sodium Level 137 mmol/L (136-145) Potassium Level 4.8 mmol/L (3.5-5.1) Chloride Level 103 mmol/L (101-111) Carbon Dioxide Level 25 mmol/L (21-32) Blood Urea Nitrogen 19 mg/dL (7-18) H Creatinine 1.1 mg/dL (0.5-1.0) H Glomerular Filtration Rate Calc 56 mL/min (>90) Random Glucose 98 mg/dL (70-105) Total Calcium 9.8 mg/dL (8.5-10.1) Magnesium Level 2.00 mg/dL (1.80-2.40) Troponin I High Sensitivity 6 ng/L (4-50) Urine Color LIGHT-YELLOW (YELLOW) Urine Appearance CLEAR (CLEAR) Urine pH 7.0 (5.0-8.0) Urine Specific [place] 1.005 (1.001-1.031) Urine Protein NEGATIVE mg/dL (NEGATIVE) Urine Glucose (UA) NEGATIVE mg/dL (NEGATIVE) Urine Ketones NEGATIVE mg/dL (NEGATIVE) Urine Occult Blood NEGATIVE (NEGATIVE) Urine Nitrate NEGATIVE (NEGATIVE) Urine Bilirubin NEGATIVE mg/dL (NEGATIVE) Urine Urobilinogen 0.2 mg/dL (0.2-1.0) Urine Leukocyte Esterase NEGATIVE Jennifer/uL Labs Reviewed?: Yes EKG Comment: EKGs did not at 5:04 p.m.. Sinus rhythm rate 64. STEMI interpreted by ER MD CT Scan Comment: [address] [address] IMAGING REPORT Signed PATIENT: JACIEL SAUER MR#: [id number] : 1960 SEX: F AGE: 65 LOCATION: [facility] ORDER 14 STATUS: REG ER REPORT#: [id number] SERVICE 13 REASON: abdominal opain ORDERING PHYSICIAN: GURDEEP CONRAD CNP PROCEDURE: ABD PEL WO - CT ABDOMEN/PELVIS W/O CONTRAST STUDY CT Abdomen and Pelvis Without IV contrast HISTORY Abdominal pain TECHNIQUE Axial computed tomography images of the abdomen and pelvis were obtained without intravenous contrast. COMPARISON CT abdomen/pelvis with contrast 07/16/2025; abdominal ultrasound 07/17/2025. FINDINGS Lung bases The visualized lung bases demonstrate minimal chronic parenchymal change in the form of scattered linear atelectasis or mild parenchymal scarring. No focal consolidation, suspicious pulmonary nodule, or features of interstitial lung disease are identified. Liver and biliary system The liver is unremarkable in size and attenuation, without focal hepatic lesion. The gallbladder appears within normal limits, with no radiopaque gallstones and no biliary ductal dilatation. Pancreas and spleen The pancreas and spleen are unremarkable. Adrenal glands The adrenal glands are normal in size and morphology without focal mass. Kidneys, ureters, and bladder Both kidneys are normal in size and contour. There is mild perinephric fat stranding bilaterally. No hydronephrosis, hydroureter, or urinary calculi are identified. The urinary bladder is unremarkable. Stomach and bowel The stomach and small bowel loops are unremarkable in course and caliber, with no evidence of obstruction, bowel wall thickening, or perienteric inflammatory change. There is uncomplicated colonic diverticulosis. Abundant colonic fecal matter may reflect constipation. Appendix The appendix is visualized and appears normal, without CT evidence of acute appendicitis. Peritoneum and lymph nodes No free intraperitoneal fluid or free air is identified. No pathologically enlarged abdominal or pelvic lymph nodes are seen. Reproductive organs The uterus is surgically absent. No adnexal mass is identified. Vasculature The abdominal aorta is normal in caliber with no evidence of aneurysm. Bones There is reduced disc space at L2L3 with opposing endplate sclerosis, in keeping with degenerative disc disease. No aggressive osseous lesion or acute fracture is identified. Pelvic floor and soft tissues There is rectal prolapse. The visualized soft tissues are otherwise unremarkable. IMPRESSION * Abundant colonic fecal matter may reflect constipation. There is no bowel obstruction. Rectal prolapse. * Uncomplicated colonic diverticulosis and mild bilateral perinephric fat stranding without obstructive uropathy, of uncertain clinical significance.Recommend correlation with renal function test. * Degenerative disc disease at L2L3 and minimal chronic basilar parenchymal change; no acute intra-abdominal or pelvic inflammatory process demonstrated. /[place] DICTATED BY: MIKI VANG Jr., MD DATE: 08/03/251899 ELECTRONICALLY SIGNED BY: MIKI VANG Jr., MD DATE: 08/03/251899 ED Course ED Course Orders Procedure Category Date Status Time Cbc With Differential LAB 08/03/25 Complete 15:11 Basic Metabolic Panel LAB 08/03/25 Complete 15:11 Magnesium LAB 08/03/25 Complete 15:11 Urinalysis Profile LAB 08/03/25 Complete 15:11 0.9%Nacl 1000ml (Ns PHA 08/03/25 In Process 1000ml) 15:30 Ondansetron 4mg Inj PHA 08/03/25 Complete (Zofran 4mg Inj) 15:30 Morphine 2mg Syg PHA 08/03/25 Complete (Morphine 2mg Syg) 15:30 12 Lead Ekg Tracing- EKG 08/03/25 Logged Technical 16:14 Troponin I High LAB 08/03/25 Complete Sensitivity 16:14 Ct Abdomen/Pelvis W/O CT 08/03/25 Resulted Contrast 16:14 Current Medications Medications (Trade) Dose Ordered Sig/Krishan Route PRN Reason Start Time Stop Time Status Last Admin Dose Admin Morphine Sulfate (morPHINE 2MG SYG) 2 mg ONCE ONCE IVP 08/03/25 15:30 08/03/25 15:31 DC 08/03/25 15:26 Ondansetron HCl (zoFRAN 4MG INJ) 4 mg ONCE ONCE IVP 08/03/25 15:30 08/03/25 15:31 DC 08/03/25 15:26 Sodium Chloride 1,000 ml @ 999 mls/hr Q1H1M IV 08/03/25 15:30 09/02/25 15:29 08/03/25 15:26 Vital Signs Date Time Temp Pulse Resp B/P (MAP) Pulse Ox O2 Delivery O2 Flow Rate FiO2 08/03/25 13:51 97.3 133 28 164/95 99 Room Air Medical Decision Making MDM MDM: 65-year-old female coming in with complaints of cramp like pain to her generalized abdomen area. Patient states she has had this pain for many many months and has been seen multiple times here in the emergency room and by forestry instructor. Patient states just prior to arrival she was at the forestry instructor office but took too long to sent to her. Patient states she is currently on Nortriptylin 10 mg. States the medication does not help. Pat ient denies having any fever, nausea, vomiting or diarrhea. CBC shows white count of 11 , no anemia, no thrombocytopenia. Chemistry shows no electrolyte abnormality. BUN and creatinine is little bit elevated however this is consistent with the patient's previous visit. UA shows no evidence of urinary tract infection. CT scan report shows abundant colonic fecal matter may reflect constipation with no bowel obstruction. Colonic diverticulosis. Patient will be discharged with the lactulose to take it home and follow up with her GI specialist. Educated on red flag symptoms of when to return back to the emergency room. Patient verbalized understanding, answered all questions. Differential diagnosis: SBO, diverticulitis, pancreatitis, Rationale: Tests considered and ordered secondary to shared decision making include: Previous outside records reviewed: Old ER visits. Risk of complication and/or morbidity or mortality of patient management: None Medications-Per medication reconciliation Need for hospitalization: Patient does not meet criteria for hospitalization. Need for emergency major/minor surgery: No There are no social concerns with this patient. Prescription drug management Prescriptions will include symptomatic care Patient's prior external medical records from other ER visits were reviewed by me as indicated. Prior testing and results from previous visits were reviewed. Prior tests were taken into account with medical decision making and resource utilization, independent historian/historians were used to obtain complete medical history. I independently interpreted the test that were performed, results were reviewed by me and considered findings on radiology if ordered. Medical management and examination interpretation discussions were had by me with other qualified healthcare professionals as indicated for the patient's care. DX & DISP Disposition: Discharge Departure Impression: Primary Impression: Chronic abdominal pain Additional Impression: Constipation Condition: Stable Scripts Lactulose (Lactulose) 10 Gram/15 Ml Solution 30 ML PO BID for constipation for 15 Days, #500 ML 0 Refills Prov: GURDEEP CONRAD CNP 08/03/25 Additional Instructions: Cat scan only shows some constipation. Take the lactulose as prescribed to help with the bowel movements. Increase hydration and fiber in your diet. Follow up with your GI doctor as soon as possible. Return to the hospital for worsening symptoms like fever, unable to keep any food or drink, blood in stool, blood in emesis. Referrals: AMANDA COON MD (PCP) Time of Disposition: 18:44 I have reviewed the case, and I agree with, Diagnosis and Plan GURDEEP CONRAD SENSITOMETRIST Aug 03, 2025 18:45
[2025-08-03 19:01] VITALS: BP 153/73; PULSE 94; RESP 17
--- NOTE | 2025-08-03 19:09 | NUR ---
DUE TO PT CONTINUED C/O ABD CRAMPING, GURDEEP HAM PUMPER (AT BEDSIDE) OFFERED A SHOT OF MORPHINE. PT REFUSED AND WALKED OUT STATING SHE ARRIVED W/PAIN AND IS LEAVING W/PAIN. SHE WAS INSTRUCTED THAT SHE TRULY NEEDS TO F/U W/HER GI SPECIALIST FOR THIS CHRONIC ISSUE.
--- NOTE | 2025-08-04 08:43 | EKG ---
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
== END 2025-08-03 19:11 | disposition home or self-care (01) ==
LOC: EDH 13:50
DX: G89.29 Other chronic pain (principal); R10.84 Generalized abdominal pain; K59.00 Constipation, unspecified; E11.9 Type 2 diabetes mellitus without complications; E78.00 Pure hypercholesterolemia, unspecified; I10 Essential (primary) hypertension; Z88.0 Allergy status to penicillin; Z88.6 Allergy status to analgesic agent; Z79.899 Other long term (current) drug therapy; Z90.49 Acquired absence of other specified parts of digestive tract; Z90.710 Acquired absence of both cervix and uterus
CPT/HCPCS: 99285; 74176; 96374; 96361; 96375; 83735; 84484; 80048; 85025; 81003; 36415; 93005; J2270; J7030; J2405